=== PATIENT | male | born 1990 | race Caucasian/White ===

== ENCOUNTER 2017-01-21 02:28 | Emergency (ER) | payer OTHER ==
--- NOTE | 2017-01-21 02:53 | ED NURSING NOTES ---
Clinical Report - Nurses [facility] [place] [address] 01/21/2017 2:30 Patient: NGUYEN BONILLA TRIAGE Triage time 02:32. Acuity: LEVEL 4. Chief Complaint: RIGHT LOWER EXTREMITY PAIN. LEFT LOWER EXTREMITY PAIN. Alert. No acute distress. SEPSIS SCREEN: Sepsis Screen: negative. Negative (no infection suspected/documented). --02:40 Brandon Jarvis R.N. 02:32 01/21/17. BP: 147/93 (regular adult cuff) taken on the left arm, via an automated monitor, while lying. HR: 81 (normal rate). RR: 16 (regular, unlabored and normal). O2 saturation: 100% on room air. Temp: 97.9 F (oral). Pain level now: 510. --02:40 Brandon Jarvis R.N. Weight: 90.7 kg stated. Height/Length: 72 inches Per Patient. BMI: 27.1. --02:37 Brandon Jarvis R.N. Medications None. --02:39 Brandon Jarvis R.N. Medication/allergy information source: the patient. --02:40 Brandon Jarvis R.N. Allergies None. --02:39 Brandon Jarvis R.N. History Arrived by private vehicle. Historian: patient. ( Nguyen was seen for pain in his feet about 2 days ago and prescribed an antibiotic. Nguyen says the antibiotic will do nothing because he has built up an immunity to the antibiotics. Per EMS, Nguyen was [facility] after shooting up heroin and eating meth.). Treatment PROMOTIONS REPRESENTATIVE: None. SOCIAL HX: Current every day light tobacco smoker (cigarette)- less than 1/2 a pack per day. History of heavy IV drug use: heroin, methamphetamines. No alcohol use. Residence: Homeless. He has not traveled outside the [place] The patient was exposed to MRSA. SELF HARM ASSESSMENT: A self harm assessment was performed. The patient answered "no" to the question "Do you have thoughts of harming or killing yourself?" and "Have you recently had thoughts about harming or killing others?". Bedside precautions. FALL RISK ASSESSMENT: Fall risk assessment completed. No fall risk identified. NUTRITIONAL RISK ASSESSMENT: The nutritional risk assessment revealed no deficiencies. FUNCTIONAL ASSESSMENT: Functional assessment: no impairments noted. LEARNING NEEDS ASSESSMENT: The learning needs assessment revealed no barriers. ABUSE ASSESSMENT: Abuse assessment: The patient was asked "Do you feel safe in your home?" and "Has anyone hurt you or threatened to hurt you?". SKIN INTEGRITY ASSESSMENT: Skin integrity risk assessment completed. No skin integrity risk identified. --02:40 Brandon Jarvis R.N. PROBLEMS: Knee Injury. Abscess. Cellulitis. Lifestyle / Substance Problems. Substance Abuse. Hypertension. Bursitis. --02:39 Brandon Jarvis R.N. ADDITIONAL SURGERIES: ARM SURGERY. LEG SURGERY. --02:39 Brandon Jarvis R.N. Assessment GENERAL / NEURO / PSYCH: Alert. Oriented X 4. Appears in no acute distress. Yakelin Coma Scale: 15- eyes open spontaneously (4); best verbal response- oriented x 4 (5); best motor response- obeys commands (6). Patient appears calm and cooperative. ( Unkempt.). RESPIRATORY: Respirations not labored. SKIN: Skin is warm and dry. --02:40 Brandon Jarvis R.N. Interventions ID band on patient. --02:40 Brandon Jarvis R.N. PHYSICAL ASSESSMENT To room via stretcher. GENERAL / NEURO / PSYCH: Oriented X 4. Alert. Appears in no acute distress. RESPIRATORY: No respiratory distress. Respirations not labored. EXTREMITIES: Extremity pulses are within normal limits. Extremities exhibit normal ROM. Neuro-vascular status intact to the extremity. Normal gait. Right leg: erythema. Right foot: tenderness and swelling. Left leg: erythema. Left foot: tenderness and swelling. SKIN: Skin intact. Skin is warm and dry. --02:53 Brandon Jarvis R.N. NURSING PROGRESS NOTES 02:40 01/21/17. BP: 143/86 (regular adult cuff) taken on the left arm, via an automated monitor, while lying. HR: 78 (normal rate). RR: 16 (regular, unlabored and normal). O2 saturation: 100% on room air. --02:40 Brandon Jarvis R.N. The initial plan of care for this patient has been created This plan of care was discussed with the patient. Neuro-vascular extremity check distal to injury: pulses intact, no edema, capillary refill <2 seconds and sensation intact. Reassurance given to the patient. Two patient identifiers checked. Call light placed in reach. Side rails up x 2. Bed placed in lowest position. Brakes of bed on. --02:40 Brandon Jarvis R.N. 02:52 01/21/2017 Bactrim DS (Sulfamethoxazole-TMP DS) PO Tablets 2 tab given. Allergies verified and confirmed 5 rights. --02:52 Brandon Jarvis R.N. 02:52 01/21/2017 Ancef (CeFAZolin Sodium) IM 1 gm given. Given in the right ventral gluteus. Allergies verified and confirmed 5 rights. --02:52 Brandon Jarvis R.N. DISPOSITION / DISCHARGE Departure time: 03:05. Condition at departure: stable. The goals identified in the patient's plan of care were met. No learning barriers present. Discharge instructions provided and reviewed (Police). Reviewed medication(s) side effects, precautions, dosing and course information. Prescription(s) given to the patient (Nguyen verbalizes importance of finishing all prescribed antibiotics.). Patient verbalized understanding. Written instructions provided in Swedish. Verbalized understanding (Police). The patient was discharged by the physician. He was discharged to police department facility and accompanied by a police escort. He left the Emergency Department ambulatory and via police department vehicle. YAKELIN COMA SCORE: [place] Coma Scale: 15- eyes open spontaneously (4); best verbal response- oriented x 4 (5); best motor response- obeys commands (6). --03:05 Brandon Jarvis R.N. 03:03 01/21/17. BP: deferred. HR: deferred. RR: deferred. O2 saturation: deferred. Temp: deferred. Pain level now deferred. --03:05 Brandon Jarvis R.N. Locked/Released at 01/21/2017 3:05 by Brandon Jarvis R.N.
--- NOTE | 2017-01-21 02:53 | ED CLINICAL REPORT ---
Clinical Report - Physicians/Mid Levels [facility] [address] [place] [address] 01/21/2017 2:30 Patient: NGUYEN BONILLA Time Seen: 02:34. Arrived- By ambulance. Historian- patient and EMS personnel. HISTORY OF PRESENT ILLNESS Chief Complaint: FOOT PAIN. At its maximum, severity described as moderate. When seen in the E.D., severity described as moderate. Modifying factors- worsened by movement and walking. Relieved by rest. This started several weeks ago and is still present. It was gradual in onset and has been waxing/waning. No headache, fatigue, muscle aches or weakness. (Nguyen was seen for pain in his feet about 2 days ago and prescribed an antibiotic. Nguyen says the antibiotic will do nothing because he has built up an immunity to the antibiotics. Per EMS, Nguyen was found in the [facility] after shooting up heroin and eating meth). Similar symptoms previously: Recent medical care: The patient was seen recently at another facility in the emergency department. Seen for similar symptoms. Diagnosis: ("Sore feet", "Corns and callosities", "Pain" in both feet). ( Seen at [facility] on 01/13/2017 Also seen at area Walk-in clinic 2 days ago). REVIEW OF SYSTEMS No fever, sore throat, sinus drainage, nasal congestion or cough. No difficulty breathing, chest pain, abdominal pain, nausea or vomiting. No diarrhea, black stools, bloody stools, chills or difficulty with urination. No back pain, calf pain, headache or blackouts. The patient has had skin rash. He has had difficulty with ambulation. He has had suicidal thoughts (not homicidal). All systems otherwise negative, except as recorded above. PAST HISTORY Problems: Substance Abuse. Hypertension. Bursitis Abscesses Cellulitis SURGERY: Abscess I&D. Medications: None. Allergies: None. SOCIAL HISTORY Smoker- current status unknown. History of IV drug use. No alcohol use. He is homeless. ADDITIONAL NOTES The nursing notes have been reviewed. PHYSICAL EXAM Vital Signs: 01/21/2017 02:32 BP: 147/93. HR: 81. RR: 16. O2 saturation: 100%. Temp: 97.9 F. Pain level now: 5/10. Appearance: Alert. Anxious. Patient in mild distress. Eyes: Pupils equal, round and reactive to light. Eyes normal inspection. No scleral icterus or pale conjunctivae. ENT: Pharynx normal. No pharyngeal erythema or tonsillar exudate. The mucous membranes are not dry. Neck: Normal inspection. Neck supple. No meningeal signs, JVD or lymphadenopathy. CVS: Normal heart rate and rhythm. Heart sounds normal. Pulses normal. No cardiac murmur. Respiratory: No respiratory distress. Breath sounds normal. Abdomen: No visible injury. Soft and nontender. No mass. Back: Normal inspection. Skin: No cyanosis. Skin warm and dry. No diaphoresis. No jaundice. No abscess. Medium area of cellulitis with tenderness, erythema and warmth to the face, right thigh, right leg, left thigh and left leg. No lymphangitis. No petechiae. No urticaria. (IDU scars on extremities). Extremities: No calf tenderness. (signs of cellulitis on both lower extremities; no evident abscess). Neuro: Oriented X 3. No motor deficit. No sensory deficit. Reflexes normal. LABS, X-RAYS, AND EKG Pulse Oximetry: 01/21/2017 02:32 O2 saturation: 100%. (FIO2 - room air). Interpretation: normal. PROGRESS AND PROCEDURES Course of Care: Bactrim DS 2 tabs PO. Keflex 500 mg PO given. Pt denies SI or HI. No fever or other systemic symptoms now. He has picking behavior and some areas of superficial cellulitis on both lower extremities and face. Nothing evident to I&D now. Patient/family counseled. Old ED records reviewed. (CAITLYN: 7 visits to area ED's in past 12 months). Disposition: Discharged to halfway. Condition: stable and improved. CLINICAL IMPRESSION Cellulitis of the right and left cheek area, right thigh, right lower leg, left thigh and left lower leg. Chronic substance abuse- heroin, methamphetamines with perceptual disturbance. INSTRUCTIONS (medically cleared for booking into halfway; please provide Mr Bonilla with daily antibiotics as prescribed; watch for and return / follow up for fever or a change in his vital signs). Drink plenty of fluids. Warnings: Further evaluation is necessary in order to conduct further tests. It is very important to follow up with a physician. GENERAL WARNINGS: Return or contact your physician immediately if your condition worsens or changes unexpectedly, if not improving as expected, or if other problems arise. Prescription Medications: Septra DS 800 mg / 160 mg: take 2 tablets orally every 12 hours for 10 days. No refill. Substitution is permissible. Keflex 500 mg: take 1 capsule orally every 6 hours for 10 days. No refill. Substitution is permissible. OTC Medications: Acetaminophen (available over the counter): take according to label instructions. Motrin (available over the counter): take according to label instructions. Follow-up: Follow up with your doctor tomorrow. Follow-up with: [facility], , , [address] [place] [address], , [place], ; [facility], , , [facility]. [place] [address]; [facility], [facility], , [address] [place] [address] Follow up tomorrow. (Electronically signed by Leo Conway DO 01/21/2017 3:24)
--- NOTE | 2017-01-21 02:53 | ED ORDER SUMMARY ---
..... Patient: NGUYEN BONILLA OrderSheet [facility] VisitID: [id number] [address] [place] [address] 26y, M Registration Date/Time: 01/21/2017 ORDER SHEET Weight: 90.7 kg (stated) Allergies: None GENERAL ORDERS: MEDICATION ORDERS: Bactrim DS PO (Tablet 800-160 mg) 2 tabs (NOW) (02:43 01/21/2017 Fawad MOSES) (Ack 2:43 JDeElena R.N.) (2:52 JDeElena R.N.) Ancef IM 1 gm (NOW) (02:43 01/21/2017 Fawad MOSES) (Ack 2:43 JDeElena R.N.) (2:52 JDeElena R.N.) IV FLUIDS: ORDER SHEET NOTES: [Electronically signed by Brandon Jarvis R.N. (03:05 01/21/2017)] [Electronically signed by Leo Conway DO (03:24 01/21/2017)] [Electronically locked/signed by Brandon Jarvis R.N. (03:05 01/21/2017)]
--- NOTE | 2017-01-21 02:53 | ED CLINICAL REPORT ---
Clinical Report - Physicians/Mid Levels [facility] [address] [place] [address] 01/21/2017 2:30 Patient: NGUYEN BONILLA Time Seen: 02:34. Arrived- By ambulance. Historian- patient and EMS personnel. HISTORY OF PRESENT ILLNESS Chief Complaint: FOOT PAIN. At its maximum, severity described as moderate. When seen in the E.D., severity described as moderate. Modifying factors- worsened by movement and walking. Relieved by rest. This started several weeks ago and is still present. It was gradual in onset and has been waxing/waning. No headache, fatigue, muscle aches or weakness. (Nguyen was seen for pain in his feet about 2 days ago and prescribed an antibiotic. Nguyen says the antibiotic will do nothing because he has built up an immunity to the antibiotics. Per EMS, Nguyen was found in the [facility] after shooting up heroin and eating meth). Similar symptoms previously: Recent medical care: The patient was seen recently at another facility in the emergency department. Seen for similar symptoms. Diagnosis: ("Sore feet", "Corns and callosities", "Pain" in both feet). ( Seen at [facility] on 01/13/2017 Also seen at area Walk-in clinic 2 days ago). REVIEW OF SYSTEMS No fever, sore throat, sinus drainage, nasal congestion or cough. No difficulty breathing, chest pain, abdominal pain, nausea or vomiting. No diarrhea, black stools, bloody stools, chills or difficulty with urination. No back pain, calf pain, headache or blackouts. The patient has had skin rash. He has had difficulty with ambulation. He has had suicidal thoughts (not homicidal). All systems otherwise negative, except as recorded above. PAST HISTORY Problems: Substance Abuse. Hypertension. Bursitis Abscesses Cellulitis SURGERY: Abscess I&D. Medications: None. Allergies: None. SOCIAL HISTORY Smoker- current status unknown. History of IV drug use. No alcohol use. He is homeless. ADDITIONAL NOTES The nursing notes have been reviewed. PHYSICAL EXAM Vital Signs: 01/21/2017 02:32 BP: 147/93. HR: 81. RR: 16. O2 saturation: 100%. Temp: 97.9 F. Pain level now: 5/10. Appearance: Alert. Anxious. Patient in mild distress. Eyes: Pupils equal, round and reactive to light. Eyes normal inspection. No scleral icterus or pale conjunctivae. ENT: Pharynx normal. No pharyngeal erythema or tonsillar exudate. The mucous membranes are not dry. Neck: Normal inspection. Neck supple. No meningeal signs, JVD or lymphadenopathy. CVS: Normal heart rate and rhythm. Heart sounds normal. Pulses normal. No cardiac murmur. Respiratory: No respiratory distress. Breath sounds normal. Abdomen: No visible injury. Soft and nontender. No mass. Back: Normal inspection. Skin: No cyanosis. Skin warm and dry. No diaphoresis. No jaundice. No abscess. Medium area of cellulitis with tenderness, erythema and warmth to the face, right thigh, right leg, left thigh and left leg. No lymphangitis. No petechiae. No urticaria. (IDU scars on extremities). Extremities: No calf tenderness. (signs of cellulitis on both lower extremities; no evident abscess). Neuro: Oriented X 3. No motor deficit. No sensory deficit. Reflexes normal. LABS, X-RAYS, AND EKG Pulse Oximetry: 01/21/2017 02:32 O2 saturation: 100%. (FIO2 - room air). Interpretation: normal. PROGRESS AND PROCEDURES Course of Care: Bactrim DS 2 tabs PO. Keflex 500 mg PO given. Pt denies SI or HI. No fever or other systemic symptoms now. He has picking behavior and some areas of superficial cellulitis on both lower extremities and face. Nothing evident to I&D now. Patient/family counseled. Old ED records reviewed. (CAITLYN: 7 visits to area ED's in past 12 months). Disposition: [facility] to [facility]. Condition: stable and improved. CLINICAL IMPRESSION Cellulitis of the right and left cheek area, right thigh, right lower leg, left thigh and left lower leg. Chronic substance abuse- heroin, methamphetamines with perceptual disturbance. INSTRUCTIONS (medically cleared for booking into [facility]; please provide Mr Bonilla with daily antibiotics as prescribed; watch for and return / follow up for fever or a change in his vital signs). Drink plenty of fluids. Warnings: Further evaluation is necessary in order to conduct further tests. It is very important to follow up with a physician. GENERAL WARNINGS: Return or contact your physician immediately if your condition worsens or changes unexpectedly, if not improving as expected, or if other problems arise. Prescription Medications: Septra DS 800 mg / 160 mg: take 2 tablets orally every 12 hours for 10 days. No refill. Substitution is permissible. Keflex 500 mg: take 1 capsule orally every 6 hours for 10 days. No refill. Substitution is permissible. OTC Medications: Acetaminophen (available over the counter): take according to label instructions. Motrin (available over the counter): take according to label instructions. Follow-up: Follow up with your doctor tomorrow. Follow-up with: [facility], , , [address] [place] [address], , [place], ; [facility], , , [facility]. [place] [address]; [facility], [facility], , [address] [place] [address] Follow up tomorrow. (Electronically signed by Leo Conway DO 01/21/2017 3:24)
--- NOTE | 2017-01-21 02:53 | ED ORDER SUMMARY ---
..... Patient: NGUYEN BONILLA OrderSheet [facility] VisitID: [id number] [address] [place] [address] 26y, M Registration Date/Time: 01/21/2017 ORDER SHEET Weight: 90.7 kg (stated) Allergies: None GENERAL ORDERS: MEDICATION ORDERS: Bactrim DS PO (Tablet 800-160 mg) 2 tabs (NOW) (02:43 01/21/2017 Fawad MOSES) (Ack 2:43 JDeElena R.N.) (2:52 JDeElena R.N.) Ancef IM 1 gm (NOW) (02:43 01/21/2017 Fawad MOSES) (Ack 2:43 JDeElena R.N.) (2:52 JDeElena R.N.) IV FLUIDS: ORDER SHEET NOTES: [Electronically signed by Brandon Jarvis R.N. (03:05 01/21/2017)] [Electronically signed by Leo Conway DO (03:24 01/21/2017)] [Electronically locked/signed by Brandon Jarvis R.N. (03:05 01/21/2017)]
--- NOTE | 2017-01-21 03:24 | ED MED RECONCILIATION SUMMARY ---
Patient: NGUYEN BONILLA Medication Reconciliation Report [facility] VisitID: [id number] [address] [place] [address] 26y, M Registration Date/Time: 01/21/2017 Weight: 90.7 kg Height/Length: 72 in. BMI: 27.1 ALLERGIES: None The patient's Home Medications are listed below: NONE. The source(s) of the original Home Medication information: patient The following Medications were given to the patient in the Emergency Department: Bactrim DS [PO] PO 2 tab, administered: 01/21/2017 2:52:00 AM Ancef [IM] IM 1 gm, administered: 01/21/2017 2:52:00 AM The following Medications were prescribed to the patient: Acetaminophen (available over the counter): take according to label instructions. -- Leo Conway DO Motrin (available over the counter): take according to label instructions. -- Leo Conway DO Septra DS 800 mg / 160 mg: take 2 tablets orally every 12 hours for 10 days. No refill. Substitution is permissible. -- Leo Conway DO Keflex 500 mg: take 1 capsule orally every 6 hours for 10 days. No refill. Substitution is permissible. -- Leo Conway DO
--- NOTE | 2017-01-21 03:24 | ED MAR SUMMARY ---
..... Medication Administration Record [facility] [address] [place] [address] Patient: NGUYEN BONILLA Visit ID: [id number] 26y, M Weight: 90.7 kg Height/Length: 72 in BMI: 27.1 ALLERGIES: None Given 02:01/21/2017 Brandon Jarvis, RMaria InesNMaria Ines Medication Administered: BACTRIM DS [PO] (SULFAMETHOXAZOLE-TMP DS), Dose: 2 tab Tablets PO. Medication Ordered: Bactrim DS PO (Tablet 800-160 mg) 2 tabs (NOW). Given 02:01/21/2017 Brandon Jarvis, R.N. Medication Administered: ANCEF [IM] (CEFAZOLIN SODIUM), Dose: 1 gm IM. Medication Ordered: Ancef IM 1 gm (NOW).
--- NOTE | 2017-01-21 03:24 | ED MED RECONCILIATION SUMMARY ---
Patient: NGUYEN BONILLA Medication Reconciliation Report [facility] VisitID: [id number] [address] [place] [address] 26y, M Registration Date/Time: 01/21/2017 Weight: 90.7 kg Height/Length: 72 in. BMI: 27.1 ALLERGIES: None The patient's Home Medications are listed below: NONE. The source(s) of the original Home Medication information: patient The following Medications were given to the patient in the Emergency Department: Bactrim DS [PO] PO 2 tab, administered: 01/21/2017 2:52:00 AM Ancef [IM] IM 1 gm, administered: 01/21/2017 2:52:00 AM The following Medications were prescribed to the patient: Acetaminophen (available over the counter): take according to label instructions. -- Leo Conway DO Motrin (available over the counter): take according to label instructions. -- Leo Conway DO Septra DS 800 mg / 160 mg: take 2 tablets orally every 12 hours for 10 days. No refill. Substitution is permissible. -- Leo Conway DO Keflex 500 mg: take 1 capsule orally every 6 hours for 10 days. No refill. Substitution is permissible. -- Leo Conway DO
--- NOTE | 2017-01-21 03:24 | ED DISCHARGE INSTRUCTIONS ---
Patient: NGUYEN BONILLA General Instructions [facility] VisitID: [id number] [address], [place] [address] 26y, M Registration Date/Time: 01/21/2017 Cellulitis of the right and left cheek area, right thigh, right lower leg, left thigh and left lower leg. Chronic substance abuse- heroin, methamphetamines with perceptual disturbance. INSTRUCTIONS (medically cleared for booking into [facility]; please provide Mr Bonilla with daily antibiotics as prescribed; watch for and return / follow up for fever or a change in his vital signs). Drink plenty of fluids. Warnings: Further evaluation is necessary in order to conduct further tests. It is very important to follow up with a physician. GENERAL WARNINGS: Return or contact your physician immediately if your condition worsens or changes unexpectedly, if not improving as expected, or if other problems arise. Prescription Medications: Septra DS 800 mg / 160 mg: take 2 tablets orally every 12 hours for 10 days. No refill. Substitution is permissible. Keflex 500 mg: take 1 capsule orally every 6 hours for 10 days. No refill. Substitution is permissible. OTC Medications: Acetaminophen (available over the counter): take according to label instructions. Motrin (available over the counter): take according to label instructions. Follow-up: Follow up with your doctor tomorrow. Follow-up with: [facility], , , [address] [place] [address], , [place], ; [facility], , , [address], , [place] [address]; [facility], [facility], , [address] [place] [address] Follow up tomorrow. ADDITIONAL INFORMATION Cellulitis You have an infection of the skin known as cellulitis. This usually starts with a scrape, cut, insect bite, blister or other opening in the skin which becomes infected. This is a serious condition. It must be watched closely to be sure the infection is not spreading. With antibiotic treatment, the size of the red area will gradually shrink in size until the skin returns to normal. This will take 7-10 days. The red area should never increase in size once the antibiotic medicine has been started. Occasionally, an infection will be resistant to one antibiotic and another one will have to be used. Home Care: 1) Limit the use of the affected part, since excess movement can cause the infection to spread. 2) If the infection is on your leg, walk as little as possible during the first few days of the treatment. Keep your leg elevated while sitting. This will reduce swelling. 3) Take all of the antibiotic medicine exactly as directed until it is gone. Be careful not to miss any doses, especially during the first seven days. Follow Up with your doctor or this facility as directed. Check the infected area daily for the warning signs listed below. Get Prompt Medical Attention if any of the following occur: -- Spreading area of redness -- Increasing swelling or pain -- Appearance of pus or drainage -- Fever over 100.4 F (38.0 C) oral, or over 101.4 F (38.6 C) rectal, after two days on antibiotics Facial Cellulitis You have an infection of the skin known as cellulitis. This usually starts with a scrape, cut or insect bite which becomes infected. It may also occur from an infected oil gland (pimple) or hair follicle. This can be a serious condition and must be watched closely to be sure the infection is not spreading. With antibiotic treatment, the size of the red area will gradually shrink in size until the skin returns to normal. This will take 7-10 days. The red area should never increase in size once the antibiotic medicine has been started. Occasionally, an infection will be resistant to one antibiotic and another one will have to be used. Home Care: 1) Take all of the antibiotic medicine exactly as prescribed until it is gone. Be careful not to miss any doses, especially during the first few days. 2) A cool compress (face cloth soaked in cool water) applied to the face may help with the swelling and pain. 3) You may use acetaminophen (Tylenol) or ibuprofen (Motrin, Advil) to control pain, unless another medicine was prescribed. [ NOTE : If you have chronic liver or kidney disease or ever had a stomach ulcer or GI bleeding, talk with your doctor before using these medicines.] (Aspirin should never be used in anyone under 18 years of age who is ill with a fever. It may cause severe liver damage.) Follow Up with your doctor or this facility as directed. Check the infected area daily for the warning signs listed below. Get Prompt Medical Attention if any of the following occur: -- Increasing area of redness, swelling or pain -- Pus or fluid drainage from the skin or the eye -- Fever of 100.5 F (38 C) oral or 101.5 F (38.6 C) rectal for more than two days on antibiotics -- Eyelid swells shut -- Increasing headache or neck pain -- Unusual drowsiness or confusion -- Convulsion (seizure) Opiate Abuse Use and abuse of heroin or prescription pain medicines (Vicodin, codeine) may lead to physical ADDICTION or psychological DEPENDENCE. Once this occurs, you are at greater risk for any of the following: - Craving for the drug and unable to stop using the drug even though you think you want to stop (psychological dependence) - Drug withdrawal symptoms if you stop taking the drug (physical addiction) - Loss of your job or your family - Arrest, conviction and [facility] sentence for possession of an illegal substance or for driving under the influence of such a substance - Accidental injuries to yourself or others while you are under the influence of the drug (in a car or at home). - HIV infection (much greater risk if you use IV drugs) - Other sexually transmitted diseases (Herpes, chlamydia, gonorrhea and others) - Severe and fatal infection of the heart valves (if you use IV drugs) - Stroke, heart attack, hepatitis B or C, kidney failure - from overdose Home Care: 1) Admit you have a drug problem. Ask for help from your family and close friends. 2) Seek professional help. This could be individual psychotherapy, counseling, or a drug treatment program (outpatient or residential). 3) Join a self-help group for drug abuse. 4) Avoid friends who abuse drugs themselves or tempt you to continue your habit 5) Eat a balanced diet and begin a regular exercise program. Follow Up with your doctor or as advised by our staff. Contact one of the resources below for help. National [employer] on Alcoholism and Drug Dependence, www.ncadd.org 297-260-BHRG Narcotics Anonymous (check your phone book for a local listing or call 043-800-6710) www.na.org National Alcohol and Substance Abuse Information Center (for referral to treatment programs) Www.PlacewordcareCleankeys.RallyOn 998-090-3345 Get Prompt Medical Attention if any of the following occur: -- Symptoms of withdrawal (agitation, anxiety, trembling, sweats, diarrhea, unable to sleep) -- Chest pain -- Unexplained fever over 100.4 F (38.0 C) -- Excessive drowsiness or inability to be awakened -- Slow breathing under 8 breaths per minute -- Shortness of breath or cough with colored sputum -- Redness, swelling or tenderness at an injection site Sulfamethoxazole, Trimethoprim Oral tablet What is this medicine? SULFAMETHOXAZOLE; TRIMETHOPRIM or SMX-TMP (suhl fuh meth OK yumiko zohl; trye METH oh prim) is a combination of a sulfonamide antibiotic and a second antibiotic, trimethoprim. It is used to treat or prevent certain kinds of bacterial infections. It will not work for colds, flu, or other viral infections. How should I use this medicine? Take this medicine by mouth with a full glass of water. Follow the directions on the prescription label. Take your medicine at regular intervals. Do not take it more often than directed. Do not skip doses or stop your medicine early. Talk to your director bioinformatics regarding the use of this medicine in children. Special care may be needed. This medicine has been used in children as young as 2 months of age. What side effects may I notice from receiving this medicine? Side effects that you should report to your doctor or health career development counselor as soon as possible: allergic reactions like skin rash or hives, swelling of the face, lips, or tongue breathing problems fever or chills, sore throat irregular heartbeat, chest pain joint or muscle pain pain or difficulty passing urine red pinpoint spots on skin redness, blistering, peeling or loosening of the skin, including inside the mouth unusual bleeding or bruising unusually weak or tired yellowing of the eyes or skin Side effects that usually do not require medical attention (report to your doctor or health career development counselor if they continue or are bothersome): diarrhea dizziness headache loss of appetite nausea, vomiting nervousness What may interact with this medicine? Do not take this medicine with any of the following medications: aminobenzoate potassium dofetilide metronidazole This medicine may also interact with the following medications: TAMEKA inhibitors like benazepril, enalapril, lisinopril, and ramipril cyclosporine digoxin diuretics indomethacin medicines for diabetes methenamine methotrexate phenytoin potassium supplements pyrimethamine sulfinpyrazone tricyclic antidepressants warfarin What if I miss a dose? If you miss a dose, take it as soon as you can. If it is almost time for your next dose, take only that dose. Do not take double or extra doses. Where should I keep my medicine? Keep out of the reach of children. Store at room temperature between 20 to 25 degrees C (68 to 77 degrees F). Protect from light. Throw away any unused medicine after the expiration date. What should I tell my health care provider before I take this medicine? They need to know if you have any of these conditions: anemia asthma being treated with anticonvulsants if you frequently drink alcohol containing drinks kidney disease liver disease low level of folic acid or [id number] dehydrogenase poor nutrition or malabsorption porphyria severe allergies thyroid disorder an unusual or allergic reaction to sulfamethoxazole, trimethoprim, sulfa drugs, other medicines, foods, dyes, or preservatives or trying to get breast-feeding What should I watch for while using this medicine? Tell your doctor or health career development counselor if your symptoms do not improve. Drink several glasses of water a day to reduce the risk of kidney problems. Do not treat diarrhea with over the counter products. Contact your doctor if you have diarrhea that lasts more than 2 days or if it is severe and watery. This medicine can make you more sensitive to the sun. Keep out of the sun. If you cannot avoid being in the sun, wear protective clothing and use a sunscreen. Do not use sun lamps or tanning beds/booths. Cephalexin Monohydrate Oral tablet What is this medicine? CEPHALEXIN (sef a LINDSEY in) is a cephalosporin antibiotic. It is used to treat certain kinds of bacterial infections It will not work for colds, flu, or other viral infections. How should I use this medicine? Take this medicine by mouth with a full glass of water. Follow the directions on the prescription label. This medicine can be taken with or without food. Take your medicine at regular intervals. Do not take your medicine more often than directed. Take all of your medicine as directed even if you think you are better. Do not skip doses or stop your medicine early. Talk to your director bioinformatics regarding the use of this medicine in children. While this drug may be prescribed for selected conditions, precautions do apply. What side effects may I notice from receiving this medicine? Side effects that you should report to your doctor or health career development counselor as soon as possible: allergic reactions like skin rash, itching or hives, swelling of the face, lips, or tongue breathing problems pain or trouble passing urine redness, blistering, peeling or loosening of the skin, including inside the mouth severe or watery diarrhea unusually weak or tired yellowing of the eyes, skin Side effects that usually do not require medical attention (report to your doctor or health career development counselor if they continue or are bothersome): gas or heartburn genital or anal irritation headache joint or muscle pain nausea, vomiting What may interact with this medicine? probenecid some other antibiotics What if I miss a dose? If you miss a dose, take it as soon as you can. If it is almost time for your next dose, take only that dose. Do not take double or extra doses. There should be at least 4 to 6 hours between doses. Where should I keep my medicine? Keep out of the reach of children. Store at room temperature between 59 and 86 degrees F (15 and 30 degrees C). Throw away any unused medicine after the expiration date. What should I tell my health care provider before I take this medicine? They need to know if you have any of these conditions: kidney disease stomach or intestine problems, especially colitis an unusual or allergic reaction to cephalexin, other cephalosporins, penicillins, other antibiotics, medicines, foods, dyes or preservatives or trying to get breast-feeding What should I watch for while using this medicine? Tell your doctor or health career development counselor if your symptoms do not begin to improve in a few days. Do not treat diarrhea with over the counter products. Contact your doctor if you have diarrhea that lasts more than 2 days or if it is severe and watery. If you have diabetes, you may get a false-positive result for sugar in your urine. Check with your doctor or health career development counselor. Acetaminophen Oral tablet What is this medicine? ACETAMINOPHEN (a set a BRENNEN zaki fen) is a pain reliever. It is used to treat mild pain and fever. How should I use this medicine? Take this medicine by mouth with a glass of water. Follow the directions on the package or prescription label. Take your medicine at regular intervals. Do not take your medicine more often than directed. Talk to your director bioinformatics regarding the use of this medicine in children. While this drug may be prescribed for children as young as 6 years of age for selected conditions, precautions do apply. What side effects may I notice from receiving this medicine? Side effects that you should report to your doctor or health career development counselor as soon as possible: allergic reactions like skin rash, itching or hives, swelling of the face, lips, or tongue breathing problems fever or sore throat redness, blistering, peeling or loosening of the skin, including inside the mouth trouble passing urine or change in the amount of urine unusual bleeding or bruising unusually weak or tired yellowing of the eyes or skin Side effects that usually do not require medical attention (report to your doctor or health career development counselor if they continue or are bothersome): headache nausea, stomach upset What may interact with this medicine? alcohol imatinib isoniazid other medicines with acetaminophen What if I miss a dose? If you miss a dose, take it as soon as you can. If it is almost time for your next dose, take only that dose. Do not take double or extra doses. Where should I keep my medicine? Keep out of reach of children. Store at room temperature between 20 and 25 degrees C (68 and 77 degrees F). Protect from moisture and heat. Throw away any unused medicine after the expiration date. What should I tell my health care provider before I take this medicine? They need to know if you have any of these conditions: if you frequently drink alcohol containing drinks liver disease an unusual or allergic reaction to acetaminophen, other medicines, foods, dyes or preservatives or trying to get breast-feeding What should I watch for while using this medicine? Tell your doctor or health career development counselor if the pain lasts more than 10 days (5 days for children), if it gets worse, or if there is a new or different kind of pain. Also, check with your doctor if a fever lasts for more than 3 days. Do not take other medicines that contain acetaminophen with this medicine. Always read labels carefully. If you have questions, ask your doctor or pharmacist. If you take too much acetaminophen get medical help right away. Too much acetaminophen can be very dangerous and cause liver damage. Even if you do not have symptoms, it is important to get help right away. Ibuprofen Oral tablet What is this medicine? IBUPROFEN (eye BYOO proe fen) is a non-steroidal anti-inflammatory drug (NSAID). It is used for dental pain, fever, headaches or migraines, osteoarthritis, rheumatoid arthritis, or painful monthly periods. It can also relieve minor aches and pains caused by a cold, flu, or sore throat. How should I use this medicine? Take this medicine by mouth with a glass of water. Follow the directions on the prescription label. Take this medicine with food if your stomach gets upset. Try to not lie down for at least 10 minutes after you take the medicine. Take your medicine at regular intervals. Do not take your medicine more often than directed. A special MedGuide will be given to you by the pharmacist with each prescription and refill. Be sure to read this information carefully each time. Talk to your director bioinformatics regarding the use of this medicine in children. Special care may be needed. What side effects may I notice from receiving this medicine? Side effects that you should report to your doctor or health career development counselor as soon as possible: allergic reactions like skin rash, itching or hives, swelling of the face, lips, or tongue black or bloody stools, blood in the urine or in vomit breathing problems changes in vision chest pain general ill feeling or flu-like symptoms nausea or vomiting redness, blistering, peeling or loosening of the skin, including inside the mouth slurred speech or weakness on one side of the body stomach pain unexplained weight gain or swelling unusually weak or tired yellowing of eyes or skin Side effects that usually do not require medical attention (report to your doctor or health career development counselor if they continue or are bothersome): constipation or diarrhea dizziness gas or heartburn stomach upset What may interact with this medicine? Do not take this medicine with any of the following medications: cidofovir ketorolac methotrexate pemetrexed This medicine may also interact with the following medications: alcohol aspirin diuretics lithium other drugs for inflammation like prednisone warfarin What if I miss a dose? If you miss a dose, take it as soon as you can. If it is almost time for your next dose, take only that dose. Do not take double or extra doses. Where should I keep my medicine? Keep out of the reach of children. Store at room temperature between 15 and 30 degrees C (59 and 86 degrees F). Keep container tightly closed. Throw away any unused medicine after the expiration date. What should I tell my health care provider before I take this medicine? They need to know if you have any of these conditions: asthma cigarette smoker drink more than 3 alcohol containing drinks a day heart disease or circulation problems such as heart failure or leg edema (fluid retention) high blood pressure kidney disease liver disease stomach bleeding or ulcers an unusual or allergic reaction to ibuprofen, aspirin, other NSAIDS, other medicines, foods, dyes, or preservatives or trying to get breast-feeding What should I watch for while using this medicine? Tell your doctor or healthcare professional if your symptoms do not start to get better or if they get worse. This medicine does not prevent heart attack or stroke. In fact, this medicine may increase the chance of a heart attack or stroke. The chance may increase with longer use of this medicine and in people who have heart disease. If you take aspirin to prevent heart attack or stroke, talk with your doctor or health career development counselor. Do not take other medicines that contain aspirin, ibuprofen, or naproxen with this medicine. Side effects such as stomach upset, nausea, or ulcers may be more likely to occur. Many medicines available without a prescription should not be taken with this medicine. This medicine can cause ulcers and bleeding in the stomach and intestines at any time during treatment. Ulcers and bleeding can happen without warning symptoms and can cause . To reduce your risk, do not smoke cigarettes or drink alcohol while you are taking this medicine. You may get drowsy or dizzy. Do not drive, use machinery, or do anything that needs mental alertness until you know how this medicine affects you. Do not stand or sit up quickly, especially if you are an older patient. This reduces the risk of dizzy or fainting spells. This medicine can cause you to bleed more easily. Try to avoid damage to your teeth and gums when you brush or floss your teeth. You have been given the following additional information: Cellulitis Cellulitis, Facial Opiate Abuse Sulfamethoxazole, Trimethoprim Oral tablet Cephalexin Monohydrate Oral tablet Acetaminophen Oral tablet Ibuprofen Oral tablet (medically cleared for booking into [facility]; please provide Mr Bonilla with daily antibiotics as prescribed; watch for and return / follow up for fever or a change in his vital signs). (Electronically signed by Leo Conway DO 01/21/2017 3:24)
--- NOTE | 2017-01-21 03:24 | ED MAR SUMMARY ---
..... Medication Administration Record [facility] [address] [place] [address] Patient: NGUYEN BONILLA Visit ID: [id number] 26y, M Weight: 90.7 kg Height/Length: 72 in BMI: 27.1 ALLERGIES: None Given 02:01/21/2017 Brandon Jarvis, RMaria InesNMaria Ines Medication Administered: BACTRIM DS [PO] (SULFAMETHOXAZOLE-TMP DS), Dose: 2 tab Tablets PO. Medication Ordered: Bactrim DS PO (Tablet 800-160 mg) 2 tabs (NOW). Given 02:01/21/2017 Brandon Jarvis, R.N. Medication Administered: ANCEF [IM] (CEFAZOLIN SODIUM), Dose: 1 gm IM. Medication Ordered: Ancef IM 1 gm (NOW).
--- NOTE | 2017-01-21 03:24 | ED DISCHARGE INSTRUCTIONS ---
Patient: NGUYEN BONILLA General Instructions [facility] VisitID: [id number] [address], [place] [address] 26y, M Registration Date/Time: 01/21/2017 Cellulitis of the right and left cheek area, right thigh, right lower leg, left thigh and left lower leg. Chronic substance abuse- heroin, methamphetamines with perceptual disturbance. INSTRUCTIONS (medically cleared for booking [facility] [place] [facility]; please provide Mr Bonilla with daily antibiotics as prescribed; watch for and return / follow up for fever or a change in his vital signs). Drink plenty of fluids. Warnings: Further evaluation is necessary in order to conduct further tests. It is very important to follow up with a physician. GENERAL WARNINGS: Return or contact your physician immediately if your condition worsens or changes unexpectedly, if not improving as expected, or if other problems arise. Prescription Medications: Septra DS 800 mg / 160 mg: take 2 tablets orally every 12 hours for 10 days. No refill. Substitution is permissible. Keflex 500 mg: take 1 capsule orally every 6 hours for 10 days. No refill. Substitution is permissible. OTC Medications: Acetaminophen (available over the counter): take according to label instructions. Motrin (available over the counter): take according to label instructions. Follow-up: Follow up with your doctor tomorrow. Follow-up with: [facility], , , [address] [place] [address], , [place], ; [facility], , , [address], , [place] [address]; [facility], [facility], , [address] [place] [address] Follow up tomorrow. ADDITIONAL INFORMATION Cellulitis You have an infection of the skin known as cellulitis. This usually starts with a scrape, cut, insect bite, blister or other opening in the skin which becomes infected. This is a serious condition. It must be watched closely to be sure the infection is not spreading. With antibiotic treatment, the size of the red area will gradually shrink in size until the skin returns to normal. This will take 7-10 days. The red area should never increase in size once the antibiotic medicine has been started. Occasionally, an infection will be resistant to one antibiotic and another one will have to be used. Home Care: 1) Limit the use of the affected part, since excess movement can cause the infection to spread. 2) If the infection is on your leg, walk as little as possible during the first few days of the treatment. Keep your leg elevated while sitting. This will reduce swelling. 3) Take all of the antibiotic medicine exactly as directed until it is gone. Be careful not to miss any doses, especially during the first seven days. Follow Up with your doctor or this facility as directed. Check the infected area daily for the warning signs listed below. Get Prompt Medical Attention if any of the following occur: -- Spreading area of redness -- Increasing swelling or pain -- Appearance of pus or drainage -- Fever over 100.4 F (38.0 C) oral, or over 101.4 F (38.6 C) rectal, after two days on antibiotics Facial Cellulitis You have an infection of the skin known as cellulitis. This usually starts with a scrape, cut or insect bite which becomes infected. It may also occur from an infected oil gland (pimple) or hair follicle. This can be a serious condition and must be watched closely to be sure the infection is not spreading. With antibiotic treatment, the size of the red area will gradually shrink in size until the skin returns to normal. This will take 7-10 days. The red area should never increase in size once the antibiotic medicine has been started. Occasionally, an infection will be resistant to one antibiotic and another one will have to be used. Home Care: 1) Take all of the antibiotic medicine exactly as prescribed until it is gone. Be careful not to miss any doses, especially during the first few days. 2) A cool compress (face cloth soaked in cool water) applied to the face may help with the swelling and pain. 3) You may use acetaminophen (Tylenol) or ibuprofen (Motrin, Advil) to control pain, unless another medicine was prescribed. [ NOTE : If you have chronic liver or kidney disease or ever had a stomach ulcer or GI bleeding, talk with your doctor before using these medicines.] (Aspirin should never be used in anyone under 18 years of age who is ill with a fever. It may cause severe liver damage.) Follow Up with your doctor or this facility as directed. Check the infected area daily for the warning signs listed below. Get Prompt Medical Attention if any of the following occur: -- Increasing area of redness, swelling or pain -- Pus or fluid drainage from the skin or the eye -- Fever of 100.5 F (38 C) oral or 101.5 F (38.6 C) rectal for more than two days on antibiotics -- Eyelid swells shut -- Increasing headache or neck pain -- Unusual drowsiness or confusion -- Convulsion (seizure) Opiate Abuse Use and abuse of heroin or prescription pain medicines (Vicodin, codeine) may lead to physical ADDICTION or psychological DEPENDENCE. Once this occurs, you are at greater risk for any of the following: - Craving for the drug and unable to stop using the drug even though you think you want to stop (psychological dependence) - Drug withdrawal symptoms if you stop taking the drug (physical addiction) - Loss of your job or your family - Arrest, conviction and [place] [facility] sentence for possession of an illegal substance or for driving under the influence of such a substance - Accidental injuries to yourself or others while you are under the influence of the drug (in a car or at home). - HIV infection (much greater risk if you use IV drugs) - Other sexually transmitted diseases (Herpes, chlamydia, gonorrhea and others) - Severe and fatal infection of the heart valves (if you use IV drugs) - Stroke, heart attack, hepatitis B or C, kidney failure - from overdose Home Care: 1) Admit you have a drug problem. Ask for help from your family and close friends. 2) Seek professional help. This could be individual psychotherapy, counseling, or a drug treatment program (outpatient or residential). 3) Join a self-help group for drug abuse. 4) Avoid friends who abuse drugs themselves or tempt you to continue your habit 5) Eat a balanced diet and begin a regular exercise program. Follow Up with your doctor or as advised by our staff. Contact one of the resources below for help. National [place] on Alcoholism and Drug Dependence, www.ncadd.org 601-817-BHGK Narcotics Anonymous (check your phone book for a local listing or call 056-952-1871) www.na.org National Alcohol and Substance Abuse Information Center (for referral to treatment programs) Www.[employer] 648-360-8312 Get Prompt Medical Attention if any of the following occur: -- Symptoms of withdrawal (agitation, anxiety, trembling, sweats, diarrhea, unable to sleep) -- Chest pain -- Unexplained fever over 100.4 F (38.0 C) -- Excessive drowsiness or inability to be awakened -- Slow breathing under 8 breaths per minute -- Shortness of breath or cough with colored sputum -- Redness, swelling or tenderness at an injection site Sulfamethoxazole, Trimethoprim Oral tablet What is this medicine? SULFAMETHOXAZOLE; TRIMETHOPRIM or SMX-TMP (suhl fuh meth OK yumiko zohl; trye METH oh prim) is a combination of a sulfonamide antibiotic and a second antibiotic, trimethoprim. It is used to treat or prevent certain kinds of bacterial infections. It will not work for colds, flu, or other viral infections. How should I use this medicine? Take this medicine by mouth with a full glass of water. Follow the directions on the prescription label. Take your medicine at regular intervals. Do not take it more often than directed. Do not skip doses or stop your medicine early. Talk to your supply cataloguer regarding the use of this medicine in children. Special care may be needed. This medicine has been used in children as young as 2 months of age. What side effects may I notice from receiving this medicine? Side effects that you should report to your doctor or health careers adviser as soon as possible: allergic reactions like skin rash or hives, swelling of the face, lips, or tongue breathing problems fever or chills, sore throat irregular heartbeat, chest pain joint or muscle pain pain or difficulty passing urine red pinpoint spots on skin redness, blistering, peeling or loosening of the skin, including inside the mouth unusual bleeding or bruising unusually weak or tired yellowing of the eyes or skin Side effects that usually do not require medical attention (report to your doctor or health careers adviser if they continue or are bothersome): diarrhea dizziness headache loss of appetite nausea, vomiting nervousness What may interact with this medicine? Do not take this medicine with any of the following medications: aminobenzoate potassium dofetilide metronidazole This medicine may also interact with the following medications: TAMEKA inhibitors like benazepril, enalapril, lisinopril, and ramipril cyclosporine digoxin diuretics indomethacin medicines for diabetes methenamine methotrexate phenytoin potassium supplements pyrimethamine sulfinpyrazone tricyclic antidepressants warfarin What if I miss a dose? If you miss a dose, take it as soon as you can. If it is almost time for your next dose, take only that dose. Do not take double or extra doses. Where should I keep my medicine? Keep out of the reach of children. Store at room temperature between 20 to 25 degrees C (68 to 77 degrees F). Protect from light. Throw away any unused medicine after the expiration date. What should I tell my health care provider before I take this medicine? They need to know if you have any of these conditions: anemia asthma being treated with anticonvulsants if you frequently drink alcohol containing drinks kidney disease liver disease low level of folic acid or miyutmi-[id number]-oznuthzzh dehydrogenase poor nutrition or malabsorption porphyria severe allergies thyroid disorder an unusual or allergic reaction to sulfamethoxazole, trimethoprim, sulfa drugs, other medicines, foods, dyes, or preservatives or trying to get breast-feeding What should I watch for while using this medicine? Tell your doctor or health careers adviser if your symptoms do not improve. Drink several glasses of water a day to reduce the risk of kidney problems. Do not treat diarrhea with over the counter products. Contact your doctor if you have diarrhea that lasts more than 2 days or if it is severe and watery. This medicine can make you more sensitive to the sun. Keep out of the sun. If you cannot avoid being in the sun, wear protective clothing and use a sunscreen. Do not use sun lamps or tanning beds/booths. Cephalexin Monohydrate Oral tablet What is this medicine? CEPHALEXIN (sef a LINDSEY in) is a cephalosporin antibiotic. It is used to treat certain kinds of bacterial infections It will not work for colds, flu, or other viral infections. How should I use this medicine? Take this medicine by mouth with a full glass of water. Follow the directions on the prescription label. This medicine can be taken with or without food. Take your medicine at regular intervals. Do not take your medicine more often than directed. Take all of your medicine as directed even if you think you are better. Do not skip doses or stop your medicine early. Talk to your supply cataloguer regarding the use of this medicine in children. While this drug may be prescribed for selected conditions, precautions do apply. What side effects may I notice from receiving this medicine? Side effects that you should report to your doctor or health careers adviser as soon as possible: allergic reactions like skin rash, itching or hives, swelling of the face, lips, or tongue breathing problems pain or trouble passing urine redness, blistering, peeling or loosening of the skin, including inside the mouth severe or watery diarrhea unusually weak or tired yellowing of the eyes, skin Side effects that usually do not require medical attention (report to your doctor or health careers adviser if they continue or are bothersome): gas or heartburn genital or anal irritation headache joint or muscle pain nausea, vomiting What may interact with this medicine? probenecid some other antibiotics What if I miss a dose? If you miss a dose, take it as soon as you can. If it is almost time for your next dose, take only that dose. Do not take double or extra doses. There should be at least 4 to 6 hours between doses. Where should I keep my medicine? Keep out of the reach of children. Store at room temperature between 59 and 86 degrees F (15 and 30 degrees C). Throw away any unused medicine after the expiration date. What should I tell my health care provider before I take this medicine? They need to know if you have any of these conditions: kidney disease stomach or intestine problems, especially colitis an unusual or allergic reaction to cephalexin, other cephalosporins, penicillins, other antibiotics, medicines, foods, dyes or preservatives or trying to get breast-feeding What should I watch for while using this medicine? Tell your doctor or health careers adviser if your symptoms do not begin to improve in a few days. Do not treat diarrhea with over the counter products. Contact your doctor if you have diarrhea that lasts more than 2 days or if it is severe and watery. If you have diabetes, you may get a false-positive result for sugar in your urine. Check with your doctor or health careers adviser. Acetaminophen Oral tablet What is this medicine? ACETAMINOPHEN (a set a BRENNEN zaki fen) is a pain reliever. It is used to treat mild pain and fever. How should I use this medicine? Take this medicine by mouth with a glass of water. Follow the directions on the package or prescription label. Take your medicine at regular intervals. Do not take your medicine more often than directed. Talk to your supply cataloguer regarding the use of this medicine in children. While this drug may be prescribed for children as young as 6 years of age for selected conditions, precautions do apply. What side effects may I notice from receiving this medicine? Side effects that you should report to your doctor or health careers adviser as soon as possible: allergic reactions like skin rash, itching or hives, swelling of the face, lips, or tongue breathing problems fever or sore throat redness, blistering, peeling or loosening of the skin, including inside the mouth trouble passing urine or change in the amount of urine unusual bleeding or bruising unusually weak or tired yellowing of the eyes or skin Side effects that usually do not require medical attention (report to your doctor or health careers adviser if they continue or are bothersome): headache nausea, stomach upset What may interact with this medicine? alcohol imatinib isoniazid other medicines with acetaminophen What if I miss a dose? If you miss a dose, take it as soon as you can. If it is almost time for your next dose, take only that dose. Do not take double or extra doses. Where should I keep my medicine? Keep out of reach of children. Store at room temperature between 20 and 25 degrees C (68 and 77 degrees F). Protect from moisture and heat. Throw away any unused medicine after the expiration date. What should I tell my health care provider before I take this medicine? They need to know if you have any of these conditions: if you frequently drink alcohol containing drinks liver disease an unusual or allergic reaction to acetaminophen, other medicines, foods, dyes or preservatives or trying to get breast-feeding What should I watch for while using this medicine? Tell your doctor or health careers adviser if the pain lasts more than 10 days (5 days for children), if it gets worse, or if there is a new or different kind of pain. Also, check with your doctor if a fever lasts for more than 3 days. Do not take other medicines that contain acetaminophen with this medicine. Always read labels carefully. If you have questions, ask your doctor or pharmacist. If you take too much acetaminophen get medical help right away. Too much acetaminophen can be very dangerous and cause liver damage. Even if you do not have symptoms, it is important to get help right away. Ibuprofen Oral tablet What is this medicine? IBUPROFEN (eye BYOO proe fen) is a non-steroidal anti-inflammatory drug (NSAID). It is used for dental pain, fever, headaches or migraines, osteoarthritis, rheumatoid arthritis, or painful monthly periods. It can also relieve minor aches and pains caused by a cold, flu, or sore throat. How should I use this medicine? Take this medicine by mouth with a glass of water. Follow the directions on the prescription label. Take this medicine with food if your stomach gets upset. Try to not lie down for at least 10 minutes after you take the medicine. Take your medicine at regular intervals. Do not take your medicine more often than directed. A special MedGuide will be given to you by the pharmacist with each prescription and refill. Be sure to read this information carefully each time. Talk to your supply cataloguer regarding the use of this medicine in children. Special care may be needed. What side effects may I notice from receiving this medicine? Side effects that you should report to your doctor or health careers adviser as soon as possible: allergic reactions like skin rash, itching or hives, swelling of the face, lips, or tongue black or bloody stools, blood in the urine or in vomit breathing problems changes in vision chest pain general ill feeling or flu-like symptoms nausea or vomiting redness, blistering, peeling or loosening of the skin, including inside the mouth slurred speech or weakness on one side of the body stomach pain unexplained weight gain or swelling unusually weak or tired yellowing of eyes or skin Side effects that usually do not require medical attention (report to your doctor or health careers adviser if they continue or are bothersome): constipation or diarrhea dizziness gas or heartburn stomach upset What may interact with this medicine? Do not take this medicine with any of the following medications: cidofovir ketorolac methotrexate pemetrexed This medicine may also interact with the following medications: alcohol aspirin diuretics lithium other drugs for inflammation like prednisone warfarin What if I miss a dose? If you miss a dose, take it as soon as you can. If it is almost time for your next dose, take only that dose. Do not take double or extra doses. Where should I keep my medicine? Keep out of the reach of children. Store at room temperature between 15 and 30 degrees C (59 and 86 degrees F). Keep container tightly closed. Throw away any unused medicine after the expiration date. What should I tell my health care provider before I take this medicine? They need to know if you have any of these conditions: asthma cigarette smoker drink more than 3 alcohol containing drinks a day heart disease or circulation problems such as heart failure or leg edema (fluid retention) high blood pressure kidney disease liver disease stomach bleeding or ulcers an unusual or allergic reaction to ibuprofen, aspirin, other NSAIDS, other medicines, foods, dyes, or preservatives or trying to get breast-feeding What should I watch for while using this medicine? Tell your doctor or healthcare professional if your symptoms do not start to get better or if they get worse. This medicine does not prevent heart attack or stroke. In fact, this medicine may increase the chance of a heart attack or stroke. The chance may increase with longer use of this medicine and in people who have heart disease. If you take aspirin to prevent heart attack or stroke, talk with your doctor or health careers adviser. Do not take other medicines that contain aspirin, ibuprofen, or naproxen with this medicine. Side effects such as stomach upset, nausea, or ulcers may be more likely to occur. Many medicines available without a prescription should not be taken with this medicine. This medicine can cause ulcers and bleeding in the stomach and intestines at any time during treatment. Ulcers and bleeding can happen without warning symptoms and can cause . To reduce your risk, do not smoke cigarettes or drink alcohol while you are taking this medicine. You may get drowsy or dizzy. Do not drive, use machinery, or do anything that needs mental alertness until you know how this medicine affects you. Do not stand or sit up quickly, especially if you are an older patient. This reduces the risk of dizzy or fainting spells. This medicine can cause you to bleed more easily. Try to avoid damage to your teeth and gums when you brush or floss your teeth. You have been given the following additional information: Cellulitis Cellulitis, Facial Opiate Abuse Sulfamethoxazole, Trimethoprim Oral tablet Cephalexin Monohydrate Oral tablet Acetaminophen Oral tablet Ibuprofen Oral tablet (medically cleared for booking into [place] [facility]; please provide Mr Bonilla with daily antibiotics as prescribed; watch for and return / follow up for fever or a change in his vital signs). (Electronically signed by Leo Conway DO 01/21/2017 3:24)
== END 2017-01-21 03:05 ==
LOC: ED SRH 02:28
DX: L03.211 Cellulitis of face (principal); L03.115 Cellulitis of right lower limb; F11.122 Opioid abuse with intoxication with perceptual disturbance; F15.122 Other stimulant abuse with intoxication with perceptual disturbance; Z02.89 Encounter for other administrative examinations

== ENCOUNTER 2017-03-10 08:59 | Emergency (ER) | payer OTHER ==
--- NOTE | 2017-03-10 17:42 | ED CLINICAL REPORT ---
Clinical Report - Physicians/Mid Levels [facility] [address] [place] [address] 03/10/2017 9:00 Patient: NGUYEN BONILLA Time Seen: 09:02; initial patient contact. Arrived- By ambulance. Historian- EMS personnel. History limited by intoxication. Physical Exam limited by intoxication. HISTORY OF PRESENT ILLNESS Chief Complaint: CHANGED MENTAL STATUS and CONFUSION. The patient has been disoriented. (re-evaluated after pt sobered up). This started today and is still present. (unknown). Patient was last known well (unknown). History of recent drug use Unknown. Usually is alert and oriented X3 and usually has normal mobility. Similar symptoms previously: Many times. Recent medical care: Not recently seen/assessed. REVIEW OF SYSTEMS Unobtainable due to patient's altered mental status. No fever, headache, head injury, dizziness or chest pain. No difficulty breathing, blurred vision, abdominal pain, nausea or diarrhea. No vomiting. All systems otherwise negative, except as recorded above. PAST HISTORY ( Unknown). SOCIAL HISTORY Smoker - current status unknown. Alcohol use. (Unknown). History of drug use Unknown. ADDITIONAL NOTES The nursing notes have been reviewed. PHYSICAL EXAM Vital Signs: 03/10/2017 08:44 BP: 172/98. HR: 130. RR: 24. O2 saturation: 100%. Have been reviewed. Hypertensive. Tachycardic. Tachypneic. Temperature normal. Oxygen saturation normal. Appearance: Alert. He appears intoxicated, is restless, appears unkempt and older than stated age and shows no apparent trauma. He has normal color and is well hydrated, well nourished and well developed. Head: Head atraumatic. ENT: Airway intact. Dry mucous membranes present. CVS: Normal heart rate and rhythm. Heart sounds normal. Respiratory: No respiratory distress. Breath sounds normal. Abdomen: Soft and nontender. No organomegaly. The bowel sounds are not abnormal. Skin: Skin warm and dry. Normal skin color. Extremities: No lower extremity edema. Neuro: Altered mental status. (Intoxicated). LABS, X-RAYS, AND EKG Laboratory Tests: UA-Culture if indicated: (KEITH: 03/10/2017 09:45) ( [facility] 03/10/2017 10:59) Final results Test Result Flag Units (Reference) URINE COLOR YELLOW URINE APPEARANCE CLEAR URINE GLUCOSE NEGATIVE (NEGATIVE) URINE BILIRUBIN NEGATIVE (NEGATIVE) URINE KETONE 3 (NEGATIVE) URINE SPECIFIC GRAVITY 1.020 (1.010-1.030) URINE PH 6.0 (5.0-8.0) URINE PROTEIN TRACE (NEGATIVE) URINE UROBILINOGEN 1.0 EU/dL (0.2-1.0) URINE NITRITE NEGATIVE (NEGATIVE) URINE BLOOD NEGATIVE (NEGATIVE) URINE LEUK ESTERASE NEGATIVE (NEGATIVE) URINE RBC 0-1 rbc/hpf (0-1) URINE WBC NONE SEEN wbc/hpf (0-1) URINE EPITHELIAL CELLS 0-1 EPI/hpf (0-5) URINE BACTERIA NONE SEEN (NONE SEEN) URINE COMMENT CULT NOT INDICATED URINE CULTURES ARE SET-UP BASED ON THE FOLLOWING CRITERIA:POSITIVE NITRITEPOSITIVE LEUKOCYTE ESTERASEGREATER THAN 10 WHITE BLOOD CELLSMODERATE (2+) OR GREATER BACTERIA CBC w Diff: (KEITH: 03/10/2017 09:45) ( [facility] 03/10/2017 10:26) Final results Test Result Flag Units (Reference) WHITE BLOOD COUNT 12.2 H K/uL (4.5-11.5) RED BLOOD COUNT 4.92 M/uL (4.50-5.90) HEMOGLOBIN 14.0 gm/dL (13.5-17.5) HEMATOCRIT 42.4 % (41.0-53.0) MEAN CELL VOLUME 86 fL (80-100) MEAN CORPUSCULAR HGB 29 pg (26-34) MEAN CORPUSCULAR HGB CONC 33 g/dL (31-37) RED CELL DISTRIBUTION WIDTH 14.5 % (11.6-14.8) PLATELET COUNT 345 K/uL (150-400) NEUTROPHIL % 79.7 H % (50-75) LYMPH % 12.7 L % (25-40) MONO % 7.2 % (3-14) EOSINOPHIL % 0.1 % (0-4) BASOPHIL % 0.3 % (0-2) [id number]: (KEITH: 03/10/2017 09:45) ( [facility] 03/10/2017 10:37) Final results Test Result Flag Units (Reference) URINE DRUG SCREEN POSITIVE,Unconfirmed DRUGS DETECTED: Amphetamines~~Opiates The urine drug screen is a qualitative screening test fordrug overdose and abuse. All screen results should beconsidered as presumptive.Drugs screened for are as follows:BenzodiazepinesCocaineAmphetamines/MetamphetaminesTHC (Tetrahydrocannabinol)OpiatesBarbituratesTCA (Tricyclic Antidepressants)MethadonePositive results are unconfirmed. For confirmation, notifythe lab for the specimen to be sent to the reference lab.All confirmations must be performed by a differentmethodology.The ingestion of natural herbal and plant productscontaining Ephedra/Ephedra metabolites can produce in urineone or more substances capable of cross reacting withamphetamine/methamphetamine immunoassays. This testprovides a preliminary result only. A more specificalternative chemical method must be used to obtain aconfirmed analytical result. Salicylate Level: (KEITH: 03/10/2017 09:45) ( [facility] 03/10/2017 10:51) Final results Test Result Flag Units (Reference) SALICYLATE 3.0 mg/dL (2.8-20) CHEM 13 PANEL: (KEITH: 03/10/2017 09:45) ( [facility] 03/10/2017 11:35) Final results Test Result Flag Units (Reference) GLUCOSE 86 mg/dL (70-110) BUN 12 mg/dL (7-18) CREATININE 0.9 mg/dL (0.6-1.3) Estimated GFR >60 mL/min Estimated GFR- >60 mL/min Note: Persistent reduction over 3 months in eGFR<60 mL/min/1.73 m2 defines CKD. Patients with eGFR values>=60 mL/min/1.73 m2 may also have CKD if evidence ofpersistent proteinuria. Additional information may be foundat www.kidney.org. SODIUM 143 mmol/L (136-145) POTASSIUM 3.8 mmol/L (3.5-5.1) CHLORIDE 102 mmol/L (98-107) CARBON DIOXIDE 26 mmol/L (21-32) CALCIUM 9.3 mg/dL (8.5-10.1) TOTAL PROTEIN 8.5 H g/dL (6.4-8.2) ALBUMIN 3.9 g/dL (3.3-5.0) BILIRUBIN, TOTAL 0.7 mg/dL (0.0-1.0) ALKALINE PHOSPHATASE 83 U/L (46-116) AST (SGOT) 49 H U/L (15-37) ALT (SGPT) 72 U/L (12-78) MAGNESIUM 2.0 mg/dL (1.8-2.4) CPK 660 H U/L (24-260) TROPONIN I <0.05 ng/mL (0.00-1.5) TROPONIN REFERENCE RANGE:<0.1 NEGATIVE0.1-1.5 INDETERMINANT>1.5 POSITIVE ETHYL ALCOHOL <3 L mg/dL (3-10) CK-MB 3.7 H ng/mL (0.5-3.2) %CKMB 0.6 % (0.0-4.0) ACETAMINOPHEN < 10 L ug/mL (10-30) . PROGRESS AND PROCEDURES Course of Care: 17:42 03/10/17. Pt re-evaluated. Now sober and able to hold a normal conversation. No SI/HI. Disposition: Discharged in good and improved condition. Condition: good. CLINICAL IMPRESSION Chronic substance abuse- heroin, methamphetamines with intoxication. INSTRUCTIONS Your Current Medications: CONTINUE TAKING THE FOLLOWING MEDICATIONS: Unable to Obtain*. Follow-up: Screening today revealed the patient's blood pressure to be in the pre-hypertensive range. The patient should follow up with a primary care provider for blood pressure management. Follow-up with: [facility], , , [address], , [place], [address] Follow up in about two days. Call for an appointment. (Electronically signed by Oneil Bazan Dr. 03/11/2017 20:20)
--- NOTE | 2017-03-10 17:42 | ED ORDER SUMMARY ---
..... Patient: NGUYEN BONILLA OrderSheet [facility] VisitID: [id number] [address] [place] [address] 26y, M Registration Date/Time: 03/10/2017 ORDER SHEET Weight: 77.1 kg (estimated) Allergies: Unable to Obtain GENERAL ORDERS: UA-Culture if indicated Urgent (:03/10/2017 Virgil ECHEVERRIA) (Ack 9:10 TBergley) (10:18 MWinterer R.N.) Cardiac Panel Stat (03/10/2017 Virgil ECHEVERRIA) (Ack 9:10 TBergley) (10:18 MWinterer R.N.) Urine Drug Screen Urgent (03/10/2017 Virgil ECHEVERRIA) (Ack 9:10 TBergley) (10:18 MWinterer R.N.) Acetaminophen Level Urgent (03/10/2017 Virgil ECHEVERRIA) (Ack 9:10 TBergley) (10:18 MWinterer R.N.) Ethyl Alcohol Urgent (:03/10/2017 Virgil ECHEVERRIA) (Ack 9:10 TBergley) (10:18 MWinterer R.N.) Salicylate Level Urgent (03/10/2017 Virgil ECHEVERRIA) (Ack 9:10 TBergley) (10:18 MWinterer R.N.) MEDICATION ORDERS: IV FLUIDS: IV Saline Lock (03/10/2017 Virgil ECHEVERRIA) (Ack 9:11 MWinterer R.N.) (10:17 MWinterer R.N.) ORDER SHEET NOTES: [Electronically signed by Micaela Martino R.N. (18:33 03/10/2017)] [Electronically signed by Oneil Bazan Dr. (20:20 03/11/2017)] [Electronically locked/signed by Micaela Martino R.N. (18:33 03/10/2017)]
--- NOTE | 2017-03-10 17:42 | ED NURSING NOTES ---
Clinical Report - Nurses [facility] [address] [place] [address] 03/10/2017 9:00 Patient: NGUYEN BONILLA TRIAGE Acuity: LEVEL 3. Chief Complaint: BIZARRE BEHAVIOR. Alert. No acute distress. --08:53 Micaela Martino R.N. 08:44 03/10/17. BP: 172/98. HR: 130. RR: 24. O2 saturation: 100%. Pain level now unable to obtain due to patient condition. --08:53 Micaela Martino R.N. Weight: 77.1 kg estimated. Height/Length: 66 inches Estimated. BMI: 27.4. Growth Chart Percentile: Weight: 100%. Height/Length: 100%. --08:51 Micaela Martino R.N. Medications Unable to Obtain. --08:50 Micaela Martino R.N. Allergies Unable to Obtain. --08:50 Micaela Martino R.N. History Arrived by EMS. Historian: EMS. Unaccompanied. Primary physician (unknown). Onset. (unknown). ( EMS was called to [facility] for person with bizarre behavior. EMS found pt unable to answer questions and acting strange. EMS states police requested pt be brought in invol. EMS states plain clothes police officer is on way to ED. [employer] officer in ED states he has no information on patient.). Has been feeling agitated. PAST MEDICAL HX: Unknown. SURGERY HX: Unobtainable due to patient's altered mental status. SELF HARM ASSESSMENT: A self harm assessment was performed. In the ED the patient has been agitated, restless, confused and non-communicative. He was placed in a safe room. Clothes and valuables were removed and placed at the nurses station. FALL RISK ASSESSMENT: Fall risk assessment completed. No fall risk identified. NUTRITIONAL RISK ASSESSMENT: The nutritional risk assessment revealed no deficiencies. --08:53 Micaela Martino R.N. Assessment GENERAL / NEURO / PSYCH: Alert. Appears in no acute distress. He is disoriented, has poor eye contact, appears restless and agitated and appears unkempt. The patient is disoriented. RESPIRATORY: Respirations not labored. CVS: Capillary refill less than 2 seconds. SKIN: Mucous membranes are pink. Skin is warm and dry. --08:53 Micaela Martino R.N. Interventions Suicide precautions initiated. To room. Transported via stretcher by EMS. --08:53 Micaela Martino R.N. PHYSICAL ASSESSMENT To room via stretcher. GENERAL / NEURO / PSYCH: Appears anxious. The patient is disoriented to person, time and situation. Poor eye contact. Patient is uncommunicative. Patient appears agitated: hyperactive body language. Patient appears unkempt. Poor hygiene and marked body odor. Clothes are dirty. Hair is dirty. RESPIRATORY: Respirations not labored. CVS: Capillary refill less than 2 seconds. SKIN: Skin is warm and dry. Skin color is within normal limits. --08:56 Micaela Martino R.N. NURSING PROGRESS NOTES Patient gowned. Suicide precautions initiated: a safety sweep of the room has been completed. Room made safe. Continuous one on one supervision, checks performed every 15 minutes, clothing / valuables removed and placed in the safe. See restraint documentation. ED Physician has been notified. Bed placed in lowest position. Brakes of bed on. Patient ready for evaluation- chart flagged and ED physician notified. --08:58 Micaela Martino R.N. 09:47 03/10/2017 Site #1 started via IV in the right antecubital space with an 20g angiocath, with aseptic technique and good blood return; one attempt. Blood drawn: rainbow set. Labeled in the presence of the patient and sent to the lab. Saline lock flushed with 10 mL saline. --10:12 Micaela Martino R.N. late entry -09:45. Checked patient name and birthdate: patient confirmed urine collected with return of chaya-colored clear urine; sample sent to lab for urinalysis and drug screen. Specimen labeled in the presence of the patient (pt was able to stand and urinate in urinal). --10:14 Micaela Martino R.N. 10:19 03/10/17. ( Pt drinking water. Pt on continual monitor.). --10:19 Micaela Martino R.N. 10:51 03/10/17. ( Pt does not answer questions. Pt offered urinal and given apple juice. Lunch ordered.). --10:51 Micaela Martino R.N. 11:57 03/10/17. ( Pt given sandwich, juice, milk and fruit.). --11:57 Micaela Martino R.N. ( Pt voided 400 mL in urinal. Pt given more water. Pt does not answer questions, yet says thank you when given food or water.). --14:36 Micaela Martino R.N. 14:36 03/10/17. BP: 137/77. HR: 106. RR: 20. O2 saturation: 99% on room air. Temp: 99 F (temporal). Pain level now unable to obtain. --14:36 Micaela Martino R.N. 17:11 03/10/17. The patient is sleeping. --17:11 Micaela Martino R.N. 17:37 03/10/17. ( Pt alert and answering questions appropriately. Pt given turkey sandwich and water. Pt voided 400 mL in urinal.). --17:37 Micaela Martino R.N. DISPOSITION / DISCHARGE Departure time: 18:00 Mar 10 2017. Condition at departure: improved and stable. No learning barriers present. Discharge instructions provided and reviewed with the patient. Patient verbalized understanding. Written instructions provided in [place]i. The patient was discharged by the physician. He was discharged home. He left the Emergency Department ambulatory and via bus and with fare provided. 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 --18:32 Micaela Martino R.N. 18:31 03/10/17. BP: 131/75. HR: 81. RR: 20. O2 saturation: 100% on room air. Temp: 98.9 F (oral). Pain level now: 0/10. --18:32 Micaela Martino R.N. 18:23 03/10/2017 Site #1 removed upon discharge. Catheter intact. Manual pressure and bandage applied. --18:33 Micaela Martino R.N. Locked/Released at 03/10/2017 18:33 by Micaela Martino R.N.
--- NOTE | 2017-03-10 17:42 | ED ORDER SUMMARY ---
..... Patient: NGUYEN BONILLA OrderSheet [facility] VisitID: [id number] [address] [place] [address] 26y, M Registration Date/Time: 03/10/2017 ORDER SHEET Weight: 77.1 kg (estimated) Allergies: Unable to Obtain GENERAL ORDERS: UA-Culture if indicated Urgent (:03/10/2017 Virgil ECHEVERRIA) (Ack 9:10 TBergley) (10:18 MWinterer R.N.) Cardiac Panel Stat (03/10/2017 Virgil ECHEVERRIA) (Ack 9:10 TBergley) (10:18 MWinterer R.N.) Urine Drug Screen Urgent (03/10/2017 Virgil ECHEVERRIA) (Ack 9:10 TBergley) (10:18 MWinterer R.N.) Acetaminophen Level Urgent (03/10/2017 Virgil ECHEVERRIA) (Ack 9:10 TBergley) (10:18 MWinterer R.N.) Ethyl Alcohol Urgent (:03/10/2017 Virgil ECHEVERRIA) (Ack 9:10 TBergley) (10:18 MWinterer R.N.) Salicylate Level Urgent (03/10/2017 Virgil ECHEVERRIA) (Ack 9:10 TBergley) (10:18 MWinterer R.N.) MEDICATION ORDERS: IV FLUIDS: IV Saline Lock (03/10/2017 Virgil ECHEVERRIA) (Ack 9:11 MWinterer R.N.) (10:17 MWinterer R.N.) ORDER SHEET NOTES: [Electronically signed by Micaela Martino R.N. (18:33 03/10/2017)] [Electronically signed by Oneil Bazan Dr. (20:20 03/11/2017)] [Electronically locked/signed by Micaela Martino R.N. (18:33 03/10/2017)]
--- NOTE | 2017-03-10 17:42 | ED CLINICAL REPORT ---
Clinical Report - Physicians/Mid Levels [facility] [address] [place] [address] 03/10/2017 9:00 Patient: NGUYEN BONILLA Time Seen: 09:02; initial patient contact. Arrived- By ambulance. Historian- EMS personnel. History limited by intoxication. Physical Exam limited by intoxication. HISTORY OF PRESENT ILLNESS Chief Complaint: CHANGED MENTAL STATUS and CONFUSION. The patient has been disoriented. (re-evaluated after pt sobered up). This started today and is still present. (unknown). Patient was last known well (unknown). History of recent drug use Unknown. Usually is alert and oriented X3 and usually has normal mobility. Similar symptoms previously: Many times. Recent medical care: Not recently seen/assessed. REVIEW OF SYSTEMS Unobtainable due to patient's altered mental status. No fever, headache, head injury, dizziness or chest pain. No difficulty breathing, blurred vision, abdominal pain, nausea or diarrhea. No vomiting. All systems otherwise negative, except as recorded above. PAST HISTORY ( Unknown). SOCIAL HISTORY Smoker - current status unknown. Alcohol use. (Unknown). History of drug use Unknown. ADDITIONAL NOTES The nursing notes have been reviewed. PHYSICAL EXAM Vital Signs: 03/10/2017 08:44 BP: 172/98. HR: 130. RR: 24. O2 saturation: 100%. Have been reviewed. Hypertensive. Tachycardic. Tachypneic. Temperature normal. Oxygen saturation normal. Appearance: Alert. He appears intoxicated, is restless, appears unkempt and older than stated age and shows no apparent trauma. He has normal color and is well hydrated, well nourished and well developed. Head: Head atraumatic. ENT: Airway intact. Dry mucous membranes present. CVS: Normal heart rate and rhythm. Heart sounds normal. Respiratory: No respiratory distress. Breath sounds normal. Abdomen: Soft and nontender. No organomegaly. The bowel sounds are not abnormal. Skin: Skin warm and dry. Normal skin color. Extremities: No lower extremity edema. Neuro: Altered mental status. (Intoxicated). LABS, X-RAYS, AND EKG Laboratory Tests: UA-Culture if indicated: (KEITH: 03/10/2017 09:45) ( [facility] 03/10/[facility] 10:59) Final results Test Result Flag Units (Reference) URINE COLOR YELLOW URINE APPEARANCE CLEAR URINE GLUCOSE NEGATIVE (NEGATIVE) URINE BILIRUBIN NEGATIVE (NEGATIVE) URINE KETONE 3 (NEGATIVE) URINE SPECIFIC GRAVITY 1.020 (1.010-1.030) URINE PH 6.0 (5.0-8.0) URINE PROTEIN TRACE (NEGATIVE) URINE UROBILINOGEN 1.0 EU/dL (0.2-1.0) URINE NITRITE NEGATIVE (NEGATIVE) URINE BLOOD NEGATIVE (NEGATIVE) URINE LEUK ESTERASE NEGATIVE (NEGATIVE) URINE RBC 0-1 rbc/hpf (0-1) URINE WBC NONE SEEN wbc/hpf (0-1) URINE EPITHELIAL CELLS 0-1 EPI/hpf (0-5) URINE BACTERIA NONE SEEN (NONE SEEN) URINE COMMENT CULT NOT INDICATED URINE CULTURES ARE SET-UP BASED ON THE FOLLOWING CRITERIA:POSITIVE NITRITEPOSITIVE LEUKOCYTE ESTERASEGREATER THAN 10 WHITE BLOOD CELLSMODERATE (2+) OR GREATER BACTERIA CBC w Diff: (KEITH: 03/10/2017 09:45) ( [facility] 03/10/2017 10:26) Final results Test Result Flag Units (Reference) WHITE BLOOD COUNT 12.2 H K/uL (4.5-11.5) RED BLOOD COUNT 4.92 M/uL (4.50-5.90) HEMOGLOBIN 14.0 gm/dL (13.5-17.5) HEMATOCRIT 42.4 % (41.0-53.0) MEAN CELL VOLUME 86 fL (80-100) MEAN CORPUSCULAR HGB 29 pg (26-34) MEAN CORPUSCULAR HGB CONC 33 g/dL (31-37) RED CELL DISTRIBUTION WIDTH 14.5 % (11.6-14.8) PLATELET COUNT 345 K/uL (150-400) NEUTROPHIL % 79.7 H % (50-75) LYMPH % 12.7 L % (25-40) MONO % 7.2 % (3-14) EOSINOPHIL % 0.1 % (0-4) BASOPHIL % 0.3 % (0-2) [id number]: (KEITH: 03/10/2017 09:45) ( [facility] 03/10/2017 10:37) Final results Test Result Flag Units (Reference) URINE DRUG SCREEN POSITIVE,Unconfirmed DRUGS DETECTED: Amphetamines~~Opiates The urine drug screen is a qualitative screening test fordrug overdose and abuse. All screen results should beconsidered as presumptive.Drugs screened for are as follows:BenzodiazepinesCocaineAmphetamines/MetamphetaminesTHC (Tetrahydrocannabinol)OpiatesBarbituratesTCA (Tricyclic Antidepressants)MethadonePositive results are unconfirmed. For confirmation, notifythe lab for the specimen to be sent to the reference lab.All confirmations must be performed by a differentmethodology.The ingestion of natural herbal and plant productscontaining Ephedra/Ephedra metabolites can produce in urineone or more substances capable of cross reacting withamphetamine/methamphetamine immunoassays. This testprovides a preliminary result only. A more specificalternative chemical method must be used to obtain aconfirmed analytical result. Salicylate Level: (KEITH: 03/10/2017 09:45) ( [facility] 03/10/2017 10:51) Final results Test Result Flag Units (Reference) SALICYLATE 3.0 mg/dL (2.8-20) CHEM 13 PANEL: (KEITH: 03/10/2017 09:45) ( [facility] 03/10/2017 11:35) Final results Test Result Flag Units (Reference) GLUCOSE 86 mg/dL (70-110) BUN 12 mg/dL (7-18) CREATININE 0.9 mg/dL (0.6-1.3) Estimated GFR >60 mL/min Estimated GFR- >60 mL/min Note: Persistent reduction over 3 months in eGFR<60 mL/min/1.73 m2 defines CKD. Patients with eGFR values>=60 mL/min/1.73 m2 may also have CKD if evidence ofpersistent proteinuria. Additional information may be foundat www.kidney.org. SODIUM 143 mmol/L (136-145) POTASSIUM 3.8 mmol/L (3.5-5.1) CHLORIDE 102 mmol/L (98-107) CARBON DIOXIDE 26 mmol/L (21-32) CALCIUM 9.3 mg/dL (8.5-10.1) TOTAL PROTEIN 8.5 H g/dL (6.4-8.2) ALBUMIN 3.9 g/dL (3.3-5.0) BILIRUBIN, TOTAL 0.7 mg/dL (0.0-1.0) ALKALINE PHOSPHATASE 83 U/L (46-116) AST (SGOT) 49 H U/L (15-37) ALT (SGPT) 72 U/L (12-78) MAGNESIUM 2.0 mg/dL (1.8-2.4) CPK 660 H U/L (24-260) TROPONIN I <0.05 ng/mL (0.00-1.5) TROPONIN REFERENCE RANGE:<0.1 NEGATIVE0.1-1.5 INDETERMINANT>1.5 POSITIVE ETHYL ALCOHOL <3 L mg/dL (3-10) CK-MB 3.7 H ng/mL (0.5-3.2) %CKMB 0.6 % (0.0-4.0) ACETAMINOPHEN < 10 L ug/mL (10-30) . PROGRESS AND PROCEDURES Course of Care: 17:42 03/10/17. Pt re-evaluated. Now sober and able to hold a normal conversation. No SI/HI. Disposition: Discharged in good and improved condition. Condition: good. CLINICAL IMPRESSION Chronic substance abuse- heroin, methamphetamines with intoxication. INSTRUCTIONS Your Current Medications: CONTINUE TAKING THE FOLLOWING MEDICATIONS: Unable to Obtain*. Follow-up: Screening today revealed the patient's blood pressure to be in the pre-hypertensive range. The patient should follow up with a primary care provider for blood pressure management. Follow-up with: [facility], , , [address], , [place], [address] Follow up in about two days. Call for an appointment. (Electronically signed by Oneil Bazan Dr. 03/11/2017 20:20)
--- NOTE | 2017-03-10 17:42 | ED NURSING NOTES ---
Clinical Report - Nurses [facility] [address] [place] [address] 03/10/2017 9:00 Patient: NGUYEN BONILLA TRIAGE Acuity: LEVEL 3. Chief Complaint: BIZARRE BEHAVIOR. Alert. No acute distress. --08:53 Micaela Martino R.N. 08:44 03/10/17. BP: 172/98. HR: 130. RR: 24. O2 saturation: 100%. Pain level now unable to obtain due to patient condition. --08:53 Micaela Martino R.N. Weight: 77.1 kg estimated. Height/Length: 66 inches Estimated. BMI: 27.4. Growth Chart Percentile: Weight: 100%. Height/Length: 100%. --08:51 Micaela Martino R.N. Medications Unable to Obtain. --08:50 Micaela Martino R.N. Allergies Unable to Obtain. --08:50 Micaela Martino R.N. History Arrived by EMS. Historian: EMS. Unaccompanied. Primary physician (unknown). Onset. (unknown). ( EMS was called to [facility] for person with bizarre behavior. EMS found pt unable to answer questions and acting strange. EMS states police requested pt be brought in invol. EMS states patrol police lieutenant is on way to ED. [employer] officer in ED states he has no information on patient.). Has been feeling agitated. PAST MEDICAL HX: Unknown. SURGERY HX: Unobtainable due to patient's altered mental status. SELF HARM ASSESSMENT: A self harm assessment was performed. In the ED the patient has been agitated, restless, confused and non-communicative. He was placed in a safe room. Clothes and valuables were removed and placed at the nurses station. FALL RISK ASSESSMENT: Fall risk assessment completed. No fall risk identified. NUTRITIONAL RISK ASSESSMENT: The nutritional risk assessment revealed no deficiencies. --08:53 Micaela Martino R.N. Assessment GENERAL / NEURO / PSYCH: Alert. Appears in no acute distress. He is disoriented, has poor eye contact, appears restless and agitated and appears unkempt. The patient is disoriented. RESPIRATORY: Respirations not labored. CVS: Capillary refill less than 2 seconds. SKIN: Mucous membranes are pink. Skin is warm and dry. --08:53 Micaela Martino R.N. Interventions Suicide precautions initiated. To room. Transported via stretcher by EMS. --08:53 Micaela Martino R.N. PHYSICAL ASSESSMENT To room via stretcher. GENERAL / NEURO / PSYCH: Appears anxious. The patient is disoriented to person, time and situation. Poor eye contact. Patient is uncommunicative. Patient appears agitated: hyperactive body language. Patient appears unkempt. Poor hygiene and marked body odor. Clothes are dirty. Hair is dirty. RESPIRATORY: Respirations not labored. CVS: Capillary refill less than 2 seconds. SKIN: Skin is warm and dry. Skin color is within normal limits. --08:56 Micaela Martino R.N. NURSING PROGRESS NOTES Patient gowned. Suicide precautions initiated: a safety sweep of the room has been completed. Room made safe. Continuous one on one supervision, checks performed every 15 minutes, clothing / valuables removed and placed in the safe. See restraint documentation. ED Physician has been notified. Bed placed in lowest position. Brakes of bed on. Patient ready for evaluation- chart flagged and ED physician notified. --08:58 Micaela Martino R.N. 09:47 03/10/2017 Site #1 started via IV in the right antecubital space with an 20g angiocath, with aseptic technique and good blood return; one attempt. Blood drawn: rainbow set. Labeled in the presence of the patient and sent to the lab. Saline lock flushed with 10 mL saline. --10:12 Micaela Martino R.N. late entry -09:45. Checked patient name and birthdate: patient confirmed urine collected with return of chaya-colored clear urine; sample sent to lab for urinalysis and drug screen. Specimen labeled in the presence of the patient (pt was able to stand and urinate in urinal). --10:14 Micaela Martino R.N. 10:19 03/10/17. ( Pt drinking water. Pt on continual monitor.). --10:19 Micaela Martino R.N. 10:51 03/10/17. ( Pt does not answer questions. Pt offered urinal and given apple juice. Lunch ordered.). --10:51 Micaela Martino R.N. 11:57 03/10/17. ( Pt given sandwich, juice, milk and fruit.). --11:57 Micaela Martino R.N. ( Pt voided 400 mL in urinal. Pt given more water. Pt does not answer questions, yet says thank you when given food or water.). --14:36 Micaela Martino R.N. 14:36 03/10/17. BP: 137/77. HR: 106. RR: 20. O2 saturation: 99% on room air. Temp: 99 F (temporal). Pain level now unable to obtain. --14:36 Micaela Martino R.N. 17:11 03/10/17. The patient is sleeping. --17:11 Micaela Martino R.N. 17:37 03/10/17. ( Pt alert and answering questions appropriately. Pt given turkey sandwich and water. Pt voided 400 mL in urinal.). --17:37 Micaela Martino R.N. DISPOSITION / DISCHARGE Departure time: 18:00 Mar 10 2017. Condition at departure: improved and stable. No learning barriers present. Discharge instructions provided and reviewed with the patient. Patient verbalized understanding. Written instructions provided in Lao. The patient was discharged by the physician. He was discharged home. He left the Emergency Department ambulatory and via bus and with fare provided. 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 --18:32 Micaela Martino R.N. 18:31 03/10/17. BP: 131/75. HR: 81. RR: 20. O2 saturation: 100% on room air. Temp: 98.9 F (oral). Pain level now: 0/10. --18:32 Micaela Martino R.N. 18:23 03/10/2017 Site #1 removed upon discharge. Catheter intact. Manual pressure and bandage applied. --18:33 Micaela Martino R.N. Locked/Released at 03/10/2017 18:33 by Micaela Martino R.N.
--- NOTE | 2017-03-11 20:21 | ED MED RECONCILIATION SUMMARY ---
Patient: NGUYEN BONILLA Medication Reconciliation Report [facility] VisitID: [id number] [address] [place] [address] 26y, M Registration Date/Time: 03/10/2017 Weight: 77.1 kg Height/Length: 66 in. BMI: 27.4 ALLERGIES: Unable to Obtain The patient's Home Medications are listed below: Unable to obtain. The source(s) of the original Home Medication information: Not obtained. The following Medications were given to the patient in the Emergency Department: None. The following Medications were prescribed to the patient: None.
--- NOTE | 2017-03-11 20:21 | ED DISCHARGE INSTRUCTIONS ---
Patient: NGUYEN BONILLA General Instructions [facility] VisitID: [id number] [address], [place] [address] 26y, M Registration Date/Time: 03/10/2017 Chronic substance abuse- heroin, methamphetamines with intoxication. INSTRUCTIONS Your Current Medications: CONTINUE TAKING THE FOLLOWING MEDICATIONS: Unable to Obtain*. Follow-up: Screening today revealed the patient's blood pressure to be in the pre-hypertensive range. The patient should follow up with a primary care provider for blood pressure management. Follow-up with: [facility], , , [address], , [place], [address] Follow up in about two days. Call for an appointment. ADDITIONAL INFORMATION Drug Abuse Use and abuse of such drugs as marijuana, amphetamines (speed, crank), cocaine, heroin or prescription pain medicines (Vicodin, codeine), sedatives and sleeping pills (Valium, Klonopin), PCP, mescaline and LSD may lead to addiction or dependence. Once this occurs, you are at greater risk for any of the following: Craving for the drug and unable to stop using the drug even though you think you want to stop (psychological dependence) Drug withdrawal symptoms if you stop taking the drug (physical dependence) Loss of your job or your family Arrest, conviction and senior living sentence for possession of an illegal substance or for driving under the influence of such a substance Accidental injuries to yourself or others while you are under the influence of the drug (in a car or at home). HIV infection (much greater risk if you use IV drugs) Other sexually transmitted diseases (herpes, chlamydia, gonorrhea and others) Severe and fatal infection of the heart valves (if you use IV drugs) Stroke, heart attack, hepatitis B or C, kidney failure from overdose Home Care: Admit you have a drug problem. Ask for help from your family and close friends. Seek professional help. This could be in the form of individual psychotherapy or counseling or an outpatient, inpatient, or residential drug treatment program. Join a self-help group for drug abuse. Avoid friends who abuse drugs themselves or tempt you to continue abusing drugs. Eat a balanced diet and begin a regular exercise program. Follow Up with your doctor or as advised by our staff. Contact one of the resources below for help. National [place] on Alcoholism and Drug Dependence www.ncadd.org 536-886-GIEB Narcotics Anonymous www.na.org 978-726-1720 National Alcohol and Substance Abuse Information Center (for referral to treatment programs) www.addictionSonatype.[employer] 636-764-2324 Get Prompt Medical Attention if any of the following occur: Agitation, anxiety, unable to sleep Unintended weight loss (more than 10 to 15 pounds over 3 months) Seizure Chest pain Fever of 100.4F (38C) or higher, or as directed by your healthcare provider Excess drowsiness or inability to be awakened Shortness of breath Slow breathing under 8 breaths per minute Cough with colored sputum Redness, swelling or tenderness at an injection site You have been given the following additional information: Drug Abuse (Electronically signed by Oneil Bazan Dr. 03/11/2017 20:20)
--- NOTE | 2017-03-11 20:21 | ED MAR SUMMARY ---
..... Medication Administration Record [facility] [address] [place], [place] [id number] Patient: NGUYEN BONILLA Visit ID: [id number] 26y, M Weight: 77.1 kg Height/Length: 66 in BMI: 27.4 ALLERGIES: Unable to Obtain
--- NOTE | 2017-03-11 20:21 | ED MAR SUMMARY ---
..... Medication Administration Record [facility] [address] [place], [place] [id number] Patient: NGUYEN BONILLA Visit ID: [id number] 26y, M Weight: 77.1 kg Height/Length: 66 in BMI: 27.4 ALLERGIES: Unable to Obtain
--- NOTE | 2017-03-11 20:21 | ED DISCHARGE INSTRUCTIONS ---
Patient: NGUYEN BONILLA General Instructions [facility] VisitID: [id number] [address], [place] [address] 26y, M Registration Date/Time: 03/10/2017 Chronic substance abuse- heroin, methamphetamines with intoxication. INSTRUCTIONS Your Current Medications: CONTINUE TAKING THE FOLLOWING MEDICATIONS: Unable to Obtain*. Follow-up: Screening today revealed the patient's blood pressure to be in the pre-hypertensive range. The patient should follow up with a primary care provider for blood pressure management. Follow-up with: [facility], , , [address], , [place], [address] Follow up in about two days. Call for an appointment. ADDITIONAL INFORMATION Drug Abuse Use and abuse of such drugs as marijuana, amphetamines (speed, crank), cocaine, heroin or prescription pain medicines (Vicodin, codeine), sedatives and sleeping pills (Valium, Klonopin), PCP, mescaline and LSD may lead to addiction or dependence. Once this occurs, you are at greater risk for any of the following: Craving for the drug and unable to stop using the drug even though you think you want to stop (psychological dependence) Drug withdrawal symptoms if you stop taking the drug (physical dependence) Loss of your job or your family Arrest, conviction and usp sentence for possession of an illegal substance or for driving under the influence of such a substance Accidental injuries to yourself or others while you are under the influence of the drug (in a car or at home). HIV infection (much greater risk if you use IV drugs) Other sexually transmitted diseases (herpes, chlamydia, gonorrhea and others) Severe and fatal infection of the heart valves (if you use IV drugs) Stroke, heart attack, hepatitis B or C, kidney failure from overdose Home Care: Admit you have a drug problem. Ask for help from your family and close friends. Seek professional help. This could be in the form of individual psychotherapy or counseling or an outpatient, inpatient, or residential drug treatment program. Join a self-help group for drug abuse. Avoid friends who abuse drugs themselves or tempt you to continue abusing drugs. Eat a balanced diet and begin a regular exercise program. Follow Up with your doctor or as advised by our staff. Contact one of the resources below for help. National [place] on Alcoholism and Drug Dependence www.ncadd.org 952-756-JVCX Narcotics Anonymous www.na.org 790-409-2413 National Alcohol and Substance Abuse Information Center (for referral to treatment programs) www.addictionCivo.[employer] 314-844-7293 Get Prompt Medical Attention if any of the following occur: Agitation, anxiety, unable to sleep Unintended weight loss (more than 10 to 15 pounds over 3 months) Seizure Chest pain Fever of 100.4F (38C) or higher, or as directed by your healthcare provider Excess drowsiness or inability to be awakened Shortness of breath Slow breathing under 8 breaths per minute Cough with colored sputum Redness, swelling or tenderness at an injection site You have been given the following additional information: Drug Abuse (Electronically signed by Oneil Bazan Dr. 03/11/2017 20:20)
--- NOTE | 2017-03-11 20:21 | ED MED RECONCILIATION SUMMARY ---
Patient: NGUYEN BONILLA Medication Reconciliation Report [facility] VisitID: [id number] [address] [place] [address] 26y, M Registration Date/Time: 03/10/2017 Weight: 77.1 kg Height/Length: 66 in. BMI: 27.4 ALLERGIES: Unable to Obtain The patient's Home Medications are listed below: Unable to obtain. The source(s) of the original Home Medication information: Not obtained. The following Medications were given to the patient in the Emergency Department: None. The following Medications were prescribed to the patient: None.
== END 2017-03-10 18:00 | disposition home or self-care (01) ==
LOC: ED SRH 08:59 → EDBD 09:00 → ED SRH 18:00
DX: F11.129 Opioid abuse with intoxication, unspecified (principal); F15.129 Other stimulant abuse with intoxication, unspecified
CPT/HCPCS: 90004; 90100; 90616; 90617; 90939; 92010; 92610; 92720; 92780; 95059; 97000

== ENCOUNTER 2017-03-21 09:18 | Emergency (ER) | payer OTHER ==
--- NOTE | 2017-03-21 13:38 | ED ORDER SUMMARY ---
..... Patient: NGUYEN BONILLA OrderSheet [facility] VisitID: [id number] [address] [place] [address] 26y, M Registration Date/Time: 03/21/2017 ORDER SHEET Weight: 81.6 kg (estimated) Allergies: Vancomycin GENERAL ORDERS: Cardiac Panel Stat (:03/21/2017 Danny ECHEVERRIA) (Ack 9:30 TBergley) (9:36 Elizabetheck R.N.) UA-Culture if indicated Urgent (:03/21/2017 Danny ECHEVERRIA) (Ack 9:30 TBergley) (11:16 Elizabetheck R.N.) Urine Drug Screen Urgent (03/21/2017 Danny ECHEVERRIA) (Ack 9:30 TBergley) (11:16 JSimbeck R.N.) - (INCREASE IVF TO 1000 ML PER HOUR X 1 HOUR) (09:43 03/21/2017 Danny ECHEVERRIA) (9:52 Verenice R.N.) Acetaminophen Level Urgent (10:14 03/21/2017 Danny ECHEVERRIA) (Ack 10:20 KHoerner) (10:20 KHoerner) Salicylate Level Urgent (10:14 03/21/2017 Danny ECHEVERRIA) (Ack 10:20 KHoerner) (10:20 KHoerner) -- (RECHECK TEMP) (11:19 03/21/2017 Danny ECHEVERRIA) (11:22 TBergley) - (START LOOKING FOR A RIDE HOME.) (11:38 03/21/2017 Danny ECHEVERRIA) (Ack 11:51 TBergley) (13:38 KHoerner) MEDICATION ORDERS: IV FLUIDS: IV NS : initial bolus none -, then 500 mL/hr for 3h (NOW); Urgent (09:03/21/2017 Danny ECHEVERRIA) (Ack 9:41 Verenice R.N.) (9:52 Verenice R.N.) LORazepam IV 1 mg (NOW) (:03/21/2017 Danny ECHEVERRIA) (9:41 Verenice R.N.) LORazepam IV 0.5 mg (NOW) (09:43 03/21/2017 Danny ECHEVERRIA) (9:52 Verenice Garcia) LORazepam IV 0.5 mg (NOW) (10:06 03/21/2017 Danny ECHEVERRIA) (10:25 Verenice Garcia) ORDER SHEET NOTES: [Electronically signed by Corie Eaton R.N. (14:29 03/21/2017)] [Electronically signed by Flavio Conteh MD (13:29 03/22/2017)] [Electronically locked/signed by Corie Eaton R.N. (14:29 03/21/2017)]
--- NOTE | 2017-03-21 13:38 | ED NURSING NOTES ---
Clinical Report - Nurses [place] [address] [place] [address] 03/21/2017 9:20 Patient: NGUYEN BONILLA TRIAGE Triage time 09:21. Acuity: LEVEL 3. Chief Complaint: ALTERED MENTAL STATUS and DISORIENTED and ACTING DIFFERENTLY. YAKELIN COMA SCORE: Yakelin Coma Scale: 15- eyes open spontaneously (4); best verbal response- oriented x 4 (5); best motor response- obeys commands (6). --09:34 Corie Eaton R.N. 09:21 03/21/17. BP: 134/94. HR: 142. RR: 22. O2 saturation: 100% on room air. Temp: 99.6 F (oral). Pain level now: cannot qualify. --09:34 Corie Eaton R.N. Weight: 81.6 kg estimated. Height/Length: 70 inches Estimated. BMI: 25.8. --09:26 Corie Eaton R.N. Medications Antidepressant. CloNIDine HCl Oral. Percocet Oral. PriLOSEC Oral. --14:18 Corie Eaton R.N. The following entry was struck by Corie Eaton R.N., 14:19 (03/21/17) Reason - other(pt able to answer). <<STRICKEN ENTRY-- Unknown. --09:23 Corie Eaton R.N. --END STRIKE>>. Allergies Vancomycin. --14:19 Corie Eaton R.N. The following entry was struck by Corie Eaton R.N., 14:19 (03/21/17) Reason - other(pt able to answer now). <<STRICKEN ENTRY-- Unknown. --09:23 Corie Eaton R.N. --END STRIKE>>. History Arrived by EMS. Historian: EMS and patient. Primary physician (unknown). This started today. ( picked up by EMS, found with 2 "needles" on him, restless, scratching and grabbing his head). 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 See EMS report. SOCIAL HX: Smoker - current status unknown. Alcohol use. (unknown). History of drug use. FALL RISK ASSESSMENT: Fall risk assessment completed. Risk factors identified include patient impairment of mobility and cognition. Fall interventions initiated. Patient placed on stretcher. Side rails up x2. Brakes on Bed in low position. FUNCTIONAL ASSESSMENT: Functional assessment performed: mobility impairment present- this mobility impairment is a new problem; cognitive impairment present- this cognitive impairment is a new problem. LEARNING NEEDS ASSESSMENT: A learning needs assessment was performed. Factors affecting the patient's ability to learn include motivation. --09:34 Corie Eaton R.N. SOCIAL HX: Light tobacco smoker- less than 1/2 a pack per day. Occasional alcohol use. History of drug use: methamphetamines, marijuana. --14:22 Corie Eaton R.N. PROBLEMS: Depression. Substance Abuse. Knee Injury. Abscess. Cellulitis. Hypertension. Bursitis. --14:20 Corie Eaton R.N. The following entry was modified by Corie Eaton R.N., 14:20 <<STRICKEN ENTRY-- Unable to obtain. --09:25 Corie Eaton R.N. --END STRIKE>>. ADDITIONAL SURGERIES: ARM SURGERY. LEG SURGERY. --14:20 Corie Eaton R.N. Back Surgery. --14:20 Corie Eaton R.N. The following entry was struck by Corie Eaton R.N., 14:20 <<STRICKEN ENTRY-- Unknown. --09:25 Corie Eaton R.N. --END STRIKE>>. Assessment GENERAL / NEURO / PSYCH: The patient is awake and alert, is oriented, has poor eye contact and appears restless. RESPIRATORY: Respirations not labored. SKIN: Skin is warm. Skin is diaphoretic. --09:34 Corie Eaton R.N. Interventions ID band on patient. To treatment room. --09:34 Corie Eaton R.N. PHYSICAL ASSESSMENT 09:35 03/21/17. To room via stretcher. Patient gowned. GENERAL / NEURO / PSYCH: The patient is awake and alert, is oriented and appears anxious and restless. He has poor eye contact. Patient does not appear neat and clean. RESPIRATORY: Respirations not labored. SKIN: Skin is warm. Skin is diaphoretic. --09:35 Corie Eaton R.N. NURSING PROGRESS NOTES 09:35 03/21/17. Patient gowned. Head of bed elevated. Call light placed in reach. Side rails up x 2. Bed placed in lowest position. Brakes of bed on. --09:36 Corie Eaton R.N. 09:36 03/21/2017 Site #1 started via IV in the left antecubital space with an 20g angiocath, with aseptic technique and good blood return; one attempt. Blood drawn: rainbow set. Saline lock flushed with 10 mL saline (by Jonnathan LÓPEZ). --09:36 Corie Eaton R.N. 09:41 03/21/2017 Lorazepam (LORazepam) IVP 1 mg given over 1 minute(s) via site #1. IV patency established. IV site checked: no pain, redness, or swelling. IV flushed thoroughly pre- and post-medication administration. IVP given by RN. --09:41 Corie Eaton R.N. 09:52 03/21/2017 Lorazepam (LORazepam) IVP 0.5 mg given over 1 minute(s) via site #1. IV patency established. IV site checked: no pain, redness, or swelling. IV flushed thoroughly pre- and post-medication administration. IVP given by RN. --09:52 Corie Eaton R.N. 09:52 03/21/2017 Started bag #1 1000 mL IV Fluids IV NS (Saline); at 1000 mL/hr over 1 hour(s) via site #1 via IV pump. --09:52 Corie Eaton R.N. 09:54 03/21/17. Reassessment after fluids administered and medication administered. Overall patient status is the same- he states feels the same. GENERAL / NEURO / PSYCH: The patient reports anxiety and restlessness. Alert. RESPIRATORY: No respiratory distress. CVS: Cardiac rhythm: sinus tachycardia. SKIN: Skin is warm. --09:54 Corie Eaton R.N. 09:40 03/21/17. HR: 132. RR: 33. --09:54 Corie Eaton R.N. 09:59 03/21/17. BP: 136/60. HR: 137. RR: 20. --09:59 Corie Eaton R.N. 10:10 03/21/2017 Lorazepam (LORazepam) IVP 0.5 mg given over 1 minute(s) via site #1. IV patency established. IV site checked: no pain, redness, or swelling. IV flushed thoroughly pre- and post-medication administration. IVP given by RN. --10:25 Corie Eaton R.N. 10:30 03/21/17. ( pt belongings in locker #2.). --10:30 Linda Barragan 10:42 03/21/2017 Site #1 removed (pt pulled out his IV). --10:47 Corie Eaton R.N. 10:42 03/21/2017 IV Fluids IV NS Discontinued: bag #1 infused. Total amount infused: 1000 mL. --10:47 Corie Eaton R.N. 10:48 pt had calmed for bit, started thrashng around and pulled out his IV. --10:49 Corie Eaton R.N. 11:36 03/21/17. Overall patient status is improved- he states feels the same (appears calmer but says "I'm scared", then asks to be released). GENERAL / NEURO / PSYCH: Alert. Oriented X 4. RESPIRATORY: No respiratory distress. SKIN: Skin is warm. --11:36 Corie Eaton R.N. 11:34 03/21/17. BP: 118/84. HR: 112. RR: 26. O2 saturation: 99% on room air. --11:36 Corie Eaton R.N. 11:44 now states he really isn't comfortable calling anyone to come pick him up at this time. --11:45 Corie Eaton R.N. 12:03/21/17. Temp: 98.4 F (oral). --12:02 Corie Eaton R.N. 12:45 getting out of bed, redirects readily, juice given. --12:54 Corie Eaton R.N. 13:45. Reassessment after fluids administered and medication administered. He is calm. Overall patient status is improved- he states feels better (pt was up and amb in the dept, he had a lunch tray provided and ate 100% of it, he had many boxes of apple juice, he asked for "more ativan", a taxi was called for him, he left the dept amb without assist). GENERAL / NEURO / PSYCH: Affect appears flat. Patient is calm and cooperative. Alert. Oriented X 4. SKIN: Skin is warm and dry. --14:29 Corie Eaton R.N. DISPOSITION / DISCHARGE Departure time: 1345. Condition at departure: improved and stable. Ability to learn limited by poor comprehension. Discharge instructions provided and reviewed with the patient. Patient verbalized understanding. Written instructions provided in Turkmen. The patient was discharged home and unaccompanied at time of discharge. He left the Emergency Department ambulatory. ( asked pt for an address or phone number and the pt stated "I'm a migrant"). FALL RISK ASSESSMENT: Fall risk assessment completed. No fall risk identified. --14:25 Corie Eaton R.N. 13:45 03/21/17. BP: 134/86. HR: 111. RR: 18. O2 saturation: 100% on room air. Temp: 98.1 F. Pain level now: 0/10. --14:25 Corie Eaton R.N. 13:45 03/21/17. Pain level now: 0/10. Additional comments: ERMD aware of pulse rate on discharge. --14:26 Corie Eaton R.N. Locked/Released at 03/21/2017 14:29 by Corie Eaton R.N.
--- NOTE | 2017-03-21 13:38 | ED ORDER SUMMARY ---
..... Patient: NGUYEN BONILLA OrderSheet [facility] VisitID: [id number] [address] [place] [address] 26y, M Registration Date/Time: 03/21/2017 ORDER SHEET Weight: 81.6 kg (estimated) Allergies: Vancomycin GENERAL ORDERS: Cardiac Panel Stat (:03/21/2017 Danny ECHEVERRIA) (Ack 9:30 TBergley) (9:36 Elizabetheck R.N.) UA-Culture if indicated Urgent (:03/21/2017 Danny ECHEVERRIA) (Ack 9:30 TBergley) (11:16 Elizabetheck R.N.) Urine Drug Screen Urgent (03/21/2017 Danny ECHEVERRIA) (Ack 9:30 TBergley) (11:16 JSimbeck R.N.) - (INCREASE IVF TO 1000 ML PER HOUR X 1 HOUR) (09:43 03/21/2017 Danny ECHEVERRIA) (9:52 Verenice R.N.) Acetaminophen Level Urgent (10:14 03/21/2017 Danny ECHEVERRIA) (Ack 10:20 KHoerner) (10:20 KHoerner) Salicylate Level Urgent (10:14 03/21/2017 Danny ECHEVERRIA) (Ack 10:20 KHoerner) (10:20 KHoerner) -- (RECHECK TEMP) (11:19 03/21/2017 Danny ECHEVERRIA) (11:22 TBergley) - (START LOOKING FOR A RIDE HOME.) (11:38 03/21/2017 Danny ECHEVERRIA) (Ack 11:51 TBergley) (13:38 KHoerner) MEDICATION ORDERS: IV FLUIDS: IV NS : initial bolus none -, then 500 mL/hr for 3h (NOW); Urgent (09:03/21/2017 Danny ECHEVERRIA) (Ack 9:41 Verenice R.N.) (9:52 Verenice R.N.) LORazepam IV 1 mg (NOW) (:03/21/2017 Danny ECHEVERRIA) (9:41 Verenice R.N.) LORazepam IV 0.5 mg (NOW) (09:43 03/21/2017 Danny ECHEVERRIA) (9:52 Verenice Garcia) LORazepam IV 0.5 mg (NOW) (10:06 03/21/2017 Danny ECHEVERRIA) (10:25 Verenice Garcia) ORDER SHEET NOTES: [Electronically signed by Corie Eaton R.N. (14:29 03/21/2017)] [Electronically signed by Flavio Conteh MD (13:29 03/22/2017)] [Electronically locked/signed by Corie Eaton R.N. (14:29 03/21/2017)]
--- NOTE | 2017-03-21 13:38 | ED CLINICAL REPORT ---
Clinical Report - Physicians/Mid Levels [facility] [address] [place] [address] 03/21/2017 9:20 Patient: NGUYEN BONILLA Time Seen: 09:21; upon arrival. HISTORY OF PRESENT ILLNESS Chief Complaint: CHANGED MENTAL STATUS. Bizarre Behavior outside a smoke shop. He was scaring customers. Initially he was seen by police and then his care was transferred to EMS. (Character: Bizarre behavior). This started Unknown onset and is still present. (unknown onset). History of recent drug use suspected: methamphetamines. Dextro stick was not low prior to arrival. No medication given prior to arrival. No weakness, numbness or recent fall. No difficulty walking. Usually is alert and oriented X3 and usually has normal mobility. Similar symptoms previously: Several times. Recent medical care: The patient was seen recently at this facility in the emergency department. ( Suspected substance abuse resulting in AMS He tells me that he was recently incarcerated and started an intake at [facility] REVIEW OF SYSTEMS Pt cannot give any ROS due to AMS. PAST HISTORY ( PAST HISTORY Problems: Substance Abuse. Hypertension. Bursitis Abscesses Cellulitis SURGERY: Abscess I&D). SOCIAL HISTORY History of drug use: methamphetamines. ADDITIONAL NOTES The nursing notes have been reviewed. PHYSICAL EXAM Vital Signs: 03/21/2017 13:45 BP: 134/86. HR: 111. RR: 18. O2 saturation: 100%. Temp: 98.1 F. Pain level now: 0. 03/21/2017 13:45 Pain level now: 0. 03/21/2017 12:01 Temp: 98.4 F. 03/21/2017 11:51 Temp: 98.4 F. 03/21/2017 11:34 BP: 118/84. HR: 112. RR: 26. O2 saturation: 99%. 03/21/2017 09:59 BP: 136/60. HR: 137. RR: 20. 03/21/2017 09:40 HR: 132. RR: 33. 03/21/2017 09:21 BP: 134/94. HR: 142. RR: 22. O2 saturation: 100%. Temp: 99.6 F. Appearance: (Avidly picking at his face). Head: Head atraumatic. ENT: Airway intact. Moist mucous membranes. (except for pick jacques). CVS: Tachycardia. Heart sounds normal. Respiratory: No respiratory distress. Breath sounds normal. Abdomen: Soft and nontender. Skin: (Pick jacques chiefly on face). Extremities: Extremities exhibit normal ROM. No lower extremity edema. Neuro: The patient is disoriented. Alertness is decreased. Cranial nerves normal (as tested). No motor deficit. No sensory deficit. LABS, X-RAYS, AND EKG Laboratory Tests: UA-Culture if indicated: (KEITH: 03/21/2017 11:10) ( MsgRcvd 03/21/2017 11:36) Final results Test Result Flag Units (Reference) URINE COLOR YELLOW URINE APPEARANCE TURBID URINE GLUCOSE NEGATIVE (NEGATIVE) URINE BILIRUBIN NEGATIVE (NEGATIVE) URINE KETONE 2+ (NEGATIVE) URINE SPECIFIC GRAVITY 1.015 (1.010-1.030) URINE PH 8.0 (5.0-8.0) URINE PROTEIN 1+ (NEGATIVE) URINE UROBILINOGEN 2.0 EU/dL (0.2-1.0) The urobilinogen reagent area may react with interferingsubstances known to react with Pola's reagent such asp-aminosalicylic acid and sulfonamides. Atypical colorreactions may be obtained in the presence of highconcentrations of p-aminobenzoic acid. The absence ofurobilinogen cannot be determined with this test. URINE NITRITE NEGATIVE (NEGATIVE) URINE BLOOD NEGATIVE (NEGATIVE) URINE LEUK ESTERASE NEGATIVE (NEGATIVE) URINE RBC RARE rbc/hpf (0-1) URINE WBC RARE wbc/hpf (0-1) URINE EPITHELIAL CELLS RARE EPI/hpf (0-5) URINE BACTERIA NONE SEEN (NONE SEEN) URINE COMMENT CULT NOT INDICATED 4+ AMORPHOUS CRYSTALS1+ MUCOUSURINE CULTURES ARE SET-UP BASED ON THE FOLLOWING CRITERIA:POSITIVE NITRITEPOSITIVE LEUKOCYTE ESTERASEGREATER THAN 10 WHITE BLOOD CELLSMODERATE (2+) OR GREATER BACTERIA CBC w Diff: (KEITH: 03/21/2017 09:30) ( MsgRcvd 03/21/2017 09:58) Final results Test Result Flag Units (Reference) WHITE BLOOD COUNT 8.2 K/uL (4.5-11.5) RED BLOOD COUNT 4.87 M/uL (4.50-5.90) HEMOGLOBIN 13.8 gm/dL (13.5-17.5) HEMATOCRIT 41.9 % (41.0-53.0) MEAN CELL VOLUME 86 fL (80-100) MEAN CORPUSCULAR HGB 28 pg (26-34) MEAN CORPUSCULAR HGB CONC 33 g/dL (31-37) RED CELL DISTRIBUTION WIDTH 14.0 % (11.6-14.8) PLATELET COUNT 319 K/uL (150-400) NEUTROPHIL % 72.6 % (50-75) LYMPH % 19.2 L % (25-40) MONO % 7.0 % (3-14) EOSINOPHIL % 0.8 % (0-4) BASOPHIL % 0.4 % (0-2) Salicylate Level: (KEITH: 03/21/2017 09:30) ( [facility] 03/21/2017 10:51) Final results Test Result Flag Units (Reference) SALICYLATE <2.8 L mg/dL (2.8-20) Urine Drug Screen: (KEITH: 03/21/2017 11:10) ( [facility] 03/21/2017 11:40) Final results Test Result Flag Units (Reference) AMPHETAMINE/METHAMPHETAMINE POSITIVE H (NEGATIVE) BARBITURATE NEGATIVE (NEGATIVE) BENZODIAZEPINE NEGATIVE (NEGATIVE) CANNABINOID NEGATIVE (NEGATIVE) COCAINE NEGATIVE (NEGATIVE) ECSTASY POSITIVE H (NEGATIVE) METHADONE NEGATIVE (NEGATIVE) OPIATE POSITIVE H (NEGATIVE) The urine drug screen is a qualitative screening test fordrug overdose and abuse. All screen results should beconsidered as presumptive.Drugs screened for are as follows:BenzodiazepinesCocaineAmphetamines/MetamphetaminesTHC (Tetrahydrocannabinol)OpiatesBarbituratesEcstasyMethadonePositive results are unconfirmed. For confirmation, notifythe lab for the specimen to be sent to the reference lab.All confirmations must be performed by a differentmethodology.The ingestion of natural herbal and plant productscontaining Ephedra/Ephedra metabolites can produce in urineone or more substances capable of cross reacting withamphetamine/methamphetamine immunoassays. These testsprovide a preliminary result only. A more specificalternative chemical method must be used to obtain aconfirmed analytical result. CHEM 13 PANEL: (KEITH: 03/21/2017 09:30) ( MsgRcvd 03/21/2017 11:10) Final results Test Result Flag Units (Reference) GLUCOSE 129 H mg/dL (70-110) BUN 9 mg/dL (7-18) CREATININE 0.9 mg/dL (0.6-1.3) Estimated GFR >60 mL/min Estimated GFR- >60 mL/min Note: Persistent reduction over 3 months in eGFR<60 mL/min/1.73 m2 defines CKD. Patients with eGFR values>=60 mL/min/1.73 m2 may also have CKD if evidence ofpersistent proteinuria. Additional information may be foundat www.kidney.org. SODIUM 147 H mmol/L (136-145) POTASSIUM 3.3 L mmol/L (3.5-5.1) CHLORIDE 108 H mmol/L (98-107) CARBON DIOXIDE 27 mmol/L (21-32) CALCIUM 9.2 mg/dL (8.5-10.1) TOTAL PROTEIN 8.3 H g/dL (6.4-8.2) ALBUMIN 3.6 g/dL (3.3-5.0) BILIRUBIN, TOTAL 0.3 mg/dL (0.0-1.0) ALKALINE PHOSPHATASE 78 U/L (46-116) AST (SGOT) 33 U/L (15-37) ALT (SGPT) 50 U/L (12-78) CPK 405 H U/L (24-260) MAGNESIUM 1.8 mg/dL (1.8-2.4) CK-MB 2.2 ng/mL (0.5-3.2) %CKMB 0.5 % (0.0-4.0) TROPONIN I <0.05 L ng/mL (0.00-1.5) TROPONIN REFERENCE RANGE:<0.1 NEGATIVE0.1-1.5 INDETERMINANT>1.5 POSITIVE ACETAMINOPHEN < 2.0 L ug/mL (10-30) . PROGRESS AND PROCEDURES Course of Care: Initially barely speaking, decreased alertness, avid picking. 09:45 03/21/17. Course most CW methamphetamine abuse. Increased HR noted. Qsofa score 1- AMS 10:15 03/21/17. Significantly better following lorazepam 1 + 0.5 + 0.5 mg 11:30 03/21/17. Much better. Recheck oral temp is 98.0 12:02 03/21/17. UA positive for Meth. 12:04 03/21/17. Waiting until sober or until he can find a family member. 13:36 03/21/17. Awake talking and appropriate. He is still tachycardic due to residual effects of meth. He ate a good meal. Small elevation of CK noted. Minor electrolyte abnormalities noted. Not clinically significant. Disposition: Discharged. Condition: stable. CLINICAL IMPRESSION Acute mental status change. Substance abuse problems: abuse of methamphetamine. INSTRUCTIONS (YOU NEED TO STOP METH OR YOU WILL CONSIDER [facility] FOR DRUG TREATMENT). Understanding of the discharge instructions verbalized. Follow-up with: [facility], , , [address], [facility], [id number] (Electronically signed by Flavio Conteh MD 03/22/2017 13:29)
--- NOTE | 2017-03-21 13:38 | ED CLINICAL REPORT ---
Clinical Report - Physicians/Mid Levels [facility] [address] [place] [address] 03/21/2017 9:20 Patient: NGUYEN BONILLA Time Seen: 09:21; upon arrival. HISTORY OF PRESENT ILLNESS Chief Complaint: CHANGED MENTAL STATUS. Bizarre Behavior outside a smoke shop. He was scaring customers. Initially he was seen by police and then his care was transferred to EMS. (Character: Bizarre behavior). This started Unknown onset and is still present. (unknown onset). History of recent drug use suspected: methamphetamines. Dextro stick was not low prior to arrival. No medication given prior to arrival. No weakness, numbness or recent fall. No difficulty walking. Usually is alert and oriented X3 and usually has normal mobility. Similar symptoms previously: Several times. Recent medical care: The patient was seen recently at this facility in the emergency department. ( Suspected substance abuse resulting in AMS He tells me that he was recently incarcerated and started an intake at [facility].). REVIEW OF SYSTEMS Pt cannot give any ROS due to AMS. PAST HISTORY ( PAST HISTORY Problems: Substance Abuse. Hypertension. Bursitis Abscesses Cellulitis SURGERY: Abscess I&D). SOCIAL HISTORY History of drug use: methamphetamines. ADDITIONAL NOTES The nursing notes have been reviewed. PHYSICAL EXAM Vital Signs: 03/21/2017 13:45 BP: 134/86. HR: 111. RR: 18. O2 saturation: 100%. Temp: 98.1 F. Pain level now: 0. 03/21/2017 13:45 Pain level now: 0. 03/21/2017 12:01 Temp: 98.4 F. 03/21/2017 11:51 Temp: 98.4 F. 03/21/2017 11:34 BP: 118/84. HR: 112. RR: 26. O2 saturation: 99%. 03/21/2017 09:59 BP: 136/60. HR: 137. RR: 20. 03/21/2017 09:40 HR: 132. RR: 33. 03/21/2017 09:21 BP: 134/94. HR: 142. RR: 22. O2 saturation: 100%. Temp: 99.6 F. Appearance: (Avidly picking at his face). Head: Head atraumatic. ENT: Airway intact. Moist mucous membranes. (except for pick jacques). CVS: Tachycardia. Heart sounds normal. Respiratory: No respiratory distress. Breath sounds normal. Abdomen: Soft and nontender. Skin: (Pick jacques chiefly on face). Extremities: Extremities exhibit normal ROM. No lower extremity edema. Neuro: The patient is disoriented. Alertness is decreased. Cranial nerves normal (as tested). No motor deficit. No sensory deficit. LABS, X-RAYS, AND EKG Laboratory Tests: UA-Culture if indicated: (KEITH: 03/21/2017 11:10) ( MsgRcvd 03/21/2017 11:36) Final results Test Result Flag Units (Reference) URINE COLOR YELLOW URINE APPEARANCE TURBID URINE GLUCOSE NEGATIVE (NEGATIVE) URINE BILIRUBIN NEGATIVE (NEGATIVE) URINE KETONE 2+ (NEGATIVE) URINE SPECIFIC GRAVITY 1.015 (1.010-1.030) URINE PH 8.0 (5.0-8.0) URINE PROTEIN 1+ (NEGATIVE) URINE UROBILINOGEN 2.0 EU/dL (0.2-1.0) The urobilinogen reagent area may react with interferingsubstances known to react with Pola's reagent such asp-aminosalicylic acid and sulfonamides. Atypical colorreactions may be obtained in the presence of highconcentrations of p-aminobenzoic acid. The absence ofurobilinogen cannot be determined with this test. URINE NITRITE NEGATIVE (NEGATIVE) URINE BLOOD NEGATIVE (NEGATIVE) URINE LEUK ESTERASE NEGATIVE (NEGATIVE) URINE RBC RARE rbc/hpf (0-1) URINE WBC RARE wbc/hpf (0-1) URINE EPITHELIAL CELLS RARE EPI/hpf (0-5) URINE BACTERIA NONE SEEN (NONE SEEN) URINE COMMENT CULT NOT INDICATED 4+ AMORPHOUS CRYSTALS1+ MUCOUSURINE CULTURES ARE SET-UP BASED ON THE FOLLOWING CRITERIA:POSITIVE NITRITEPOSITIVE LEUKOCYTE ESTERASEGREATER THAN 10 WHITE BLOOD CELLSMODERATE (2+) OR GREATER BACTERIA CBC w Diff: (KEITH: 03/21/2017 09:30) ( MsgRcvd 03/21/2017 09:58) Final results Test Result Flag Units (Reference) WHITE BLOOD COUNT 8.2 K/uL (4.5-11.5) RED BLOOD COUNT 4.87 M/uL (4.50-5.90) HEMOGLOBIN 13.8 gm/dL (13.5-17.5) HEMATOCRIT 41.9 % (41.0-53.0) MEAN CELL VOLUME 86 fL (80-100) MEAN CORPUSCULAR HGB 28 pg (26-34) MEAN CORPUSCULAR HGB CONC 33 g/dL (31-37) RED CELL DISTRIBUTION WIDTH 14.0 % (11.6-14.8) PLATELET COUNT 319 K/uL (150-400) NEUTROPHIL % 72.6 % (50-75) LYMPH % 19.2 L % (25-40) MONO % 7.0 % (3-14) EOSINOPHIL % 0.8 % (0-4) BASOPHIL % 0.4 % (0-2) Salicylate Level: (KEITH: 03/21/2017 09:30) ( [facility] 03/21/2017 10:51) Final results Test Result Flag Units (Reference) SALICYLATE <2.8 L mg/dL (2.8-20) Urine Drug Screen: (KEITH: 03/21/2017 11:10) ( [facility] 03/21/2017 11:40) Final results Test Result Flag Units (Reference) AMPHETAMINE/METHAMPHETAMINE POSITIVE H (NEGATIVE) BARBITURATE NEGATIVE (NEGATIVE) BENZODIAZEPINE NEGATIVE (NEGATIVE) CANNABINOID NEGATIVE (NEGATIVE) COCAINE NEGATIVE (NEGATIVE) ECSTASY POSITIVE H (NEGATIVE) METHADONE NEGATIVE (NEGATIVE) OPIATE POSITIVE H (NEGATIVE) The urine drug screen is a qualitative screening test fordrug overdose and abuse. All screen results should beconsidered as presumptive.Drugs screened for are as follows:BenzodiazepinesCocaineAmphetamines/MetamphetaminesTHC (Tetrahydrocannabinol)OpiatesBarbituratesEcstasyMethadonePositive results are unconfirmed. For confirmation, notifythe lab for the specimen to be sent to the reference lab.All confirmations must be performed by a differentmethodology.The ingestion of natural herbal and plant productscontaining Ephedra/Ephedra metabolites can produce in urineone or more substances capable of cross reacting withamphetamine/methamphetamine immunoassays. These testsprovide a preliminary result only. A more specificalternative chemical method must be used to obtain aconfirmed analytical result. CHEM 13 PANEL: (KEITH: 03/21/2017 09:30) ( MsgRcvd 03/21/2017 11:10) Final results Test Result Flag Units (Reference) GLUCOSE 129 H mg/dL (70-110) BUN 9 mg/dL (7-18) CREATININE 0.9 mg/dL (0.6-1.3) Estimated GFR >60 mL/min Estimated GFR- >60 mL/min Note: Persistent reduction over 3 months in eGFR<60 mL/min/1.73 m2 defines CKD. Patients with eGFR values>=60 mL/min/1.73 m2 may also have CKD if evidence ofpersistent proteinuria. Additional information may be foundat www.kidney.org. SODIUM 147 H mmol/L (136-145) POTASSIUM 3.3 L mmol/L (3.5-5.1) CHLORIDE 108 H mmol/L (98-107) CARBON DIOXIDE 27 mmol/L (21-32) CALCIUM 9.2 mg/dL (8.5-10.1) TOTAL PROTEIN 8.3 H g/dL (6.4-8.2) ALBUMIN 3.6 g/dL (3.3-5.0) BILIRUBIN, TOTAL 0.3 mg/dL (0.0-1.0) ALKALINE PHOSPHATASE 78 U/L (46-116) AST (SGOT) 33 U/L (15-37) ALT (SGPT) 50 U/L (12-78) CPK 405 H U/L (24-260) MAGNESIUM 1.8 mg/dL (1.8-2.4) CK-MB 2.2 ng/mL (0.5-3.2) %CKMB 0.5 % (0.0-4.0) TROPONIN I <0.05 L ng/mL (0.00-1.5) TROPONIN REFERENCE RANGE:<0.1 NEGATIVE0.1-1.5 INDETERMINANT>1.5 POSITIVE ACETAMINOPHEN < 2.0 L ug/mL (10-30) . PROGRESS AND PROCEDURES Course of Care: Initially barely speaking, decreased alertness, avid picking. 09:45 03/21/17. Course most CW methamphetamine abuse. Increased HR noted. Qsofa score 1- AMS 10:15 03/21/17. Significantly better following lorazepam 1 + 0.5 + 0.5 mg 11:30 03/21/17. Much better. Recheck oral temp is 98.0 12:02 03/21/17. UA positive for Meth. 12:04 03/21/17. Waiting until sober or until he can find a family member. 13:36 03/21/17. Awake talking and appropriate. He is still tachycardic due to residual effects of meth. He ate a good meal. Small elevation of CK noted. Minor electrolyte abnormalities noted. Not clinically significant. Disposition: Discharged. Condition: stable. CLINICAL IMPRESSION Acute mental status change. Substance abuse problems: abuse of methamphetamine. INSTRUCTIONS (YOU NEED TO STOP METH OR YOU WILL CONSIDER [facility] FOR DRUG TREATMENT). Understanding of the discharge instructions verbalized. Follow-up with: [facility], , , [address], [facility], [address] (Electronically signed by Flavio Conteh MD 03/22/2017 13:29)
--- NOTE | 2017-03-22 13:29 | ED MED RECONCILIATION SUMMARY ---
Patient: NGUYEN BONILLA Medication Reconciliation Report [facility] VisitID: [id number] [address] [place] [address] 26y, M Registration Date/Time: 03/21/2017 Weight: 81.6 kg Height/Length: 70 in. BMI: 25.8 ALLERGIES: Vancomycin The patient's Home Medications are listed below: THE FOLLOWING MEDICATIONS NEED TO BE RECONCILED: Antidepressant CloNIDine HCl Oral Percocet Oral PriLOSEC Oral The source(s) of the original Home Medication information: Not obtained. The following Medications were given to the patient in the Emergency Department: Lorazepam [IVP] IVP 1 mg, administered: 03/21/2017 9:41:00 AM Lorazepam [IVP] IVP 0.5 mg, administered: 03/21/2017 9:52:00 AM IV NS IV Fluids bolus 0, then 1000 mL/hr, administered: 03/21/2017 9:52:00 AM Lorazepam [IVP] IVP 0.5 mg, administered: 03/21/2017 10:10:00 AM The following Medications were prescribed to the patient: None.
--- NOTE | 2017-03-22 13:29 | ED MAR SUMMARY ---
..... Medication Administration Record [facility] [address] [place] [address] Patient: NGUYEN BONILLA Visit ID: [id number] 26y, M Weight: 81.6 kg Height/Length: 70 in BMI: 25.8 ALLERGIES: Vancomycin Given 09:41 03/21/2017 Corie Eaton R.N. Medication Administered: LORAZEPAM [IVP] (LORAZEPAM), Dose: 1 mg IVP over 1 minute(s), Site: #1 left AC. Medication Ordered: LORazepam IV 1 mg (NOW). Given 09:52 03/21/2017 Corie Eaton R.N. Medication Administered: LORAZEPAM [IVP] (LORAZEPAM), Dose: 0.5 mg IVP over 1 minute(s), Site: #1 left AC. Medication Ordered: LORazepam IV 0.5 mg (NOW). Start 09:52 03/21/2017 Corie Eaton R.N., Stop 10:42 03/21/2017 Corie Eaton R.N. Medication Administered: IV NS (SALINE), Dose: IV Fluids over 1 hour(s), Rate: 1000 mL/hr, Dispensed: 1000 mL bag, Site: #1 left AC. Medication Ordered: IV NS : initial bolus none -, then 500 mL/hr for 3h (NOW); Urgent. Given 10:10 03/21/2017 Corie Eaton R.N. Medication Administered: LORAZEPAM [IVP] (LORAZEPAM), Dose: 0.5 mg IVP over 1 minute(s), Site: #1 left AC. Medication Ordered: LORazepam IV 0.5 mg (NOW).
--- NOTE | 2017-03-22 13:29 | ED MAR SUMMARY ---
..... Medication Administration Record [facility] [address] [place] [address] Patient: NGUYEN BONLILA Visit ID: [id number] 26y, M Weight: 81.6 kg Height/Length: 70 in BMI: 25.8 ALLERGIES: Vancomycin Given 09:41 03/21/2017 Corie Eaton R.N. Medication Administered: LORAZEPAM [IVP] (LORAZEPAM), Dose: 1 mg IVP over 1 minute(s), Site: #1 left AC. Medication Ordered: LORazepam IV 1 mg (NOW). Given 09:52 03/21/2017 Corie Eaton R.N. Medication Administered: LORAZEPAM [IVP] (LORAZEPAM), Dose: 0.5 mg IVP over 1 minute(s), Site: #1 left AC. Medication Ordered: LORazepam IV 0.5 mg (NOW). Start 09:52 03/21/2017 Corie Eaton R.N., Stop 10:42 03/21/2017 Corie Eaton R.N. Medication Administered: IV NS (SALINE), Dose: IV Fluids over 1 hour(s), Rate: 1000 mL/hr, Dispensed: 1000 mL bag, Site: #1 left AC. Medication Ordered: IV NS : initial bolus none -, then 500 mL/hr for 3h (NOW); Urgent. Given 10:10 03/21/2017 Corie Eaton R.N. Medication Administered: LORAZEPAM [IVP] (LORAZEPAM), Dose: 0.5 mg IVP over 1 minute(s), Site: #1 left AC. Medication Ordered: LORazepam IV 0.5 mg (NOW).
--- NOTE | 2017-03-22 13:29 | ED MED RECONCILIATION SUMMARY ---
Patient: NGUYEN BONILLA Medication Reconciliation Report [facility] VisitID: [id number] [address] [place] [address] 26y, M Registration Date/Time: 03/21/2017 Weight: 81.6 kg Height/Length: 70 in. BMI: 25.8 ALLERGIES: Vancomycin The patient's Home Medications are listed below: THE FOLLOWING MEDICATIONS NEED TO BE RECONCILED: Antidepressant CloNIDine HCl Oral Percocet Oral PriLOSEC Oral The source(s) of the original Home Medication information: Not obtained. The following Medications were given to the patient in the Emergency Department: Lorazepam [IVP] IVP 1 mg, administered: 03/21/2017 9:41:00 AM Lorazepam [IVP] IVP 0.5 mg, administered: 03/21/2017 9:52:00 AM IV NS IV Fluids bolus 0, then 1000 mL/hr, administered: 03/21/2017 9:52:00 AM Lorazepam [IVP] IVP 0.5 mg, administered: 03/21/2017 10:10:00 AM The following Medications were prescribed to the patient: None.
--- NOTE | 2017-03-22 13:29 | ED DISCHARGE INSTRUCTIONS ---
Patient: NGUYEN BONILLA General Instructions [facility] VisitID: [id number] [address] [place] [address] 26y, M Registration Date/Time: 03/21/2017 Acute mental status change. Substance abuse problems: abuse of methamphetamine. INSTRUCTIONS (YOU NEED TO STOP METH OR YOU WILL CONSIDER [facility] FOR DRUG TREATMENT). Understanding of the discharge instructions verbalized. Follow-up with: [facility], , , [address], , [place], [id number] (Electronically signed by Flavio Conteh MD 03/22/2017 13:29)
--- NOTE | 2017-03-22 13:29 | ED DISCHARGE INSTRUCTIONS ---
Patient: NGUYEN BONILLA General Instructions [facility] VisitID: [id number] [address] [place] [address] 26y, M Registration Date/Time: 03/21/2017 Acute mental status change. Substance abuse problems: abuse of methamphetamine. INSTRUCTIONS (YOU NEED TO STOP METH OR YOU WILL CONSIDER [facility] FOR DRUG TREATMENT). Understanding of the discharge instructions verbalized. Follow-up with: [facility], , , [address], , [place], [address] (Electronically signed by Flavio Conteh MD 03/22/2017 13:29)
== END 2017-03-21 13:45 | disposition home or self-care (01) ==
LOC: ED SRH 09:18
DX: R41.82 Altered mental status, unspecified (principal); F19.10 Other psychoactive substance abuse, uncomplicated; I10 Essential (primary) hypertension
CPT/HCPCS: 90004; 90100; 90616; 90617; 92610; 92720; 92760; 92761; 92762; 92763; 92764; 92765; 92766; 92767; 92780; 95059; 97000

== ENCOUNTER 2017-04-26 22:51 | Emergency (ER) | payer OTHER ==
--- NOTE | 2017-04-27 00:21 | ED CLINICAL REPORT ---
Clinical Report - Physicians/Mid Levels [facility] [address] [place] [address] 04/26/2017 22:52 Patient: NGUYEN BONILLA Time Seen: 23:26; initial patient contact. INSTRUCTIONS (Pt left AMA prior to me seeing him). (Electronically signed by Oneil Bazan Dr. 04/27/2017 9:29)
--- NOTE | 2017-04-27 00:21 | ED NURSING NOTES ---
Clinical Report - Nurses [place] [address] [place] [address] 04/26/2017 22:52 Patient: NGUYEN BONILLA TRIAGE Triage time 23:11. Acuity: LEVEL 3. Chief Complaint: DRUG OVERDOSE. 23:23 04/26/17. Alert. No acute distress. SEPSIS SCREEN: Sepsis Screen. Negative (no infection suspected/documented). YAKELIN COMA SCORE: Yakelin Coma Scale: 15- eyes open spontaneously (4); best verbal response- oriented x 4 (5); best motor response- obeys commands (6). --23:23 Radha Carson R.N. 23:11 04/26/17. BP: 121/77 taken on the left arm, while sitting. HR: 90. RR: 12. O2 saturation: 95%. Temp: 97.5 F. Pain level now: 0/10. --23:23 Radha Carson R.N. Weight: 83.9 kg stated. Height/Length: 72 inches Per Patient. BMI: 25.1. --23:15 Radha Carson R.N. Medications None. --23:13 Radha Carson R.N. Allergies Vancomycin. --23:13 Radha Carson R.N. History Arrived by EMS. Historian: patient. This occurred today. The patient had loss of consciousness. 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 PAST MEDICAL HX: Immunizations: up-to-date. SOCIAL HX: Heavy tobacco smoker- 1 pack per day. History of heavy drug use: heroin, methamphetamines. Recently used drugs just prior to arrival. Under influence in ED. No alcohol use. FALL RISK ASSESSMENT: Fall risk assessment completed. No fall risk identified. NUTRITIONAL RISK ASSESSMENT: The nutritional risk assessment revealed no deficiencies. FUNCTIONAL ASSESSMENT: Functional assessment: no impairments noted. LEARNING NEEDS ASSESSMENT: The learning needs assessment revealed no barriers. SKIN INTEGRITY ASSESSMENT: Skin integrity risk assessment completed. No skin integrity risk identified. --23:23 Radha Carson R.N. PROBLEMS: Changed Mental Status. Depression. Unable to obtain. Substance Abuse. Knee Injury. Abscess. Cellulitis. Lifestyle / Substance Problems. Hypertension. Bursitis. --23:13 Radha Carson R.N. ADDITIONAL SURGERIES: ARM SURGERY. Back Surgery. LEG SURGERY. Unknown. --23:13 Radha Carson R.N. Interventions ID band on patient. To treatment room. --23:23 Radha Carson R.N. PHYSICAL ASSESSMENT 23:55 04/26/17. To room via stretcher. GENERAL / NEURO / PSYCH: Alert. Oriented X 4. Appears in no acute distress. Affect appears flat. Patient appears calm and cooperative. Patient's speech is slurred. RESPIRATORY: Respirations not labored. Breath sounds within normal limits. CVS: Capillary refill less than 2 seconds. GI / : Abdomen soft and nontender. SKIN: Skin is warm and dry. Skin color is within normal limits. ( patient has generalized scabbing). --23:55 Radha Carson R.N. NURSING PROGRESS NOTES 23:15. Monitoring of patient in place. Patient gowned. Head of bed elevated. Two patient identifiers checked. Call light placed in reach. Side rails up x 2. Bed placed in lowest position. Brakes of bed on. --23:56 Radha Carson R.N. DISPOSITION / DISCHARGE 23:58 04/26/17. The patient left the Emergency Department without being seen by a physician; patient was unaccompanied. The patient appears to be alert and oriented x4. He notified the ED staff prior to leaving the department and stated is leaving the ED due to personal reasons. Notified the ED physician of patient departure. Prior to leaving the ED, he was advised to stay for completion of treatment and return if needed. He was informed of the risks of leaving and verbalized understanding of these risks. Patient signed form prior to leaving. He left the Emergency Department ambulatory and via private vehicle. ( patient given phone to call ride. Patient given information on substance abuse treatment, given juice and snack.). --23:58 Radha Carson R.N. 23:11 04/26/17. BP: 121/77 taken on the left arm, while sitting. HR: 90. RR: 12. O2 saturation: 95%. Temp: 97.5 F. Pain level now: 0/10. --23:58 Radha Carson R.N. Locked/Released at 04/27/2017 2:50 by Radha Carson R.N.
--- NOTE | 2017-04-27 00:21 | ED NURSING NOTES ---
Clinical Report - Nurses [address] [place] [address] [place] [address] 04/26/2017 22:52 Patient: NGUYEN BONILLA TRIAGE Triage time 23:11. Acuity: LEVEL 3. Chief Complaint: DRUG OVERDOSE. 23:23 04/26/17. Alert. No acute distress. SEPSIS SCREEN: Sepsis Screen. Negative (no infection suspected/documented). YAKELIN COMA SCORE: Yakelin Coma Scale: 15- eyes open spontaneously (4); best verbal response- oriented x 4 (5); best motor response- obeys commands (6). --23:23 Radha Carson R.N. 23:11 04/26/17. BP: 121/77 taken on the left arm, while sitting. HR: 90. RR: 12. O2 saturation: 95%. Temp: 97.5 F. Pain level now: 0/10. --23:23 Radha Carson R.N. Weight: 83.9 kg stated. Height/Length: 72 inches Per Patient. BMI: 25.1. --23:15 Radha Carson R.N. Medications None. --23:13 Radha Carson R.N. Allergies Vancomycin. --23:13 Radha Carson R.N. History Arrived by EMS. Historian: patient. This occurred today. The patient had loss of consciousness. 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 PAST MEDICAL HX: Immunizations: up-to-date. SOCIAL HX: Heavy tobacco smoker- 1 pack per day. History of heavy drug use: heroin, methamphetamines. Recently used drugs just prior to arrival. Under influence in ED. No alcohol use. FALL RISK ASSESSMENT: Fall risk assessment completed. No fall risk identified. NUTRITIONAL RISK ASSESSMENT: The nutritional risk assessment revealed no deficiencies. FUNCTIONAL ASSESSMENT: Functional assessment: no impairments noted. LEARNING NEEDS ASSESSMENT: The learning needs assessment revealed no barriers. SKIN INTEGRITY ASSESSMENT: Skin integrity risk assessment completed. No skin integrity risk identified. --23:23 Radha Carson R.N. PROBLEMS: Changed Mental Status. Depression. Unable to obtain. Substance Abuse. Knee Injury. Abscess. Cellulitis. Lifestyle / Substance Problems. Hypertension. Bursitis. --23:13 Radha Carson R.N. ADDITIONAL SURGERIES: ARM SURGERY. Back Surgery. LEG SURGERY. Unknown. --23:13 Radha Carson R.N. Interventions ID band on patient. To treatment room. --23:23 Radha Carson R.N. PHYSICAL ASSESSMENT 23:55 04/26/17. To room via stretcher. GENERAL / NEURO / PSYCH: Alert. Oriented X 4. Appears in no acute distress. Affect appears flat. Patient appears calm and cooperative. Patient's speech is slurred. RESPIRATORY: Respirations not labored. Breath sounds within normal limits. CVS: Capillary refill less than 2 seconds. GI / : Abdomen soft and nontender. SKIN: Skin is warm and dry. Skin color is within normal limits. ( patient has generalized scabbing). --23:55 Radha Carson R.N. NURSING PROGRESS NOTES 23:15. Monitoring of patient in place. Patient gowned. Head of bed elevated. Two patient identifiers checked. Call light placed in reach. Side rails up x 2. Bed placed in lowest position. Brakes of bed on. --23:56 Radha Carson R.N. DISPOSITION / DISCHARGE 23:58 04/26/17. The patient left the Emergency Department without being seen by a physician; patient was unaccompanied. The patient appears to be alert and oriented x4. He notified the ED staff prior to leaving the department and stated is leaving the ED due to personal reasons. Notified the ED physician of patient departure. Prior to leaving the ED, he was advised to stay for completion of treatment and return if needed. He was informed of the risks of leaving and verbalized understanding of these risks. Patient signed form prior to leaving. He left the Emergency Department ambulatory and via private vehicle. ( patient given phone to call ride. Patient given information on substance abuse treatment, given juice and snack.). --23:58 Radha Carson R.N. 23:11 04/26/17. BP: 121/77 taken on the left arm, while sitting. HR: 90. RR: 12. O2 saturation: 95%. Temp: 97.5 F. Pain level now: 0/10. --23:58 Radha Carson R.N. Locked/Released at 04/27/2017 2:50 by Radha Carson R.N.
--- NOTE | 2017-04-27 00:21 | ED CLINICAL REPORT ---
Clinical Report - Physicians/Mid Levels [facility] [address] [place] [address] 04/26/2017 22:52 Patient: NGUYEN BONILLA Time Seen: 23:26; initial patient contact. INSTRUCTIONS (Pt left AMA prior to me seeing him). (Electronically signed by Oneil Bazan Dr. 04/27/2017 9:29)
--- NOTE | 2017-04-27 09:29 | ED MAR SUMMARY ---
..... Medication Administration Record [facility] [address] [place], [place] [id number] Patient: NGUYEN BONILLA Visit ID: [id number] 26y, M Weight: 83.9 kg Height/Length: 72 in BMI: 25.1 ALLERGIES: Vancomycin
--- NOTE | 2017-04-27 09:29 | ED MED RECONCILIATION SUMMARY ---
Patient: NGUEYN BONILLA Medication Reconciliation Report [facility] VisitID: [id number] [address] [place] [address] 26y, M Registration Date/Time: 04/26/2017 Weight: 83.9 kg Height/Length: 72 in. BMI: 25.1 ALLERGIES: Vancomycin The patient's Home Medications are listed below: NONE. The source(s) of the original Home Medication information: Not obtained. The following Medications were given to the patient in the Emergency Department: None. The following Medications were prescribed to the patient: None.
--- NOTE | 2017-04-27 09:29 | ED DISCHARGE INSTRUCTIONS ---
Patient: NGUYEN BONILLA General Instructions [facility] VisitID: [id number] [address] [place] [address] 26y, M Registration Date/Time: 04/26/2017 INSTRUCTIONS (Pt left AMA prior to me seeing him). (Electronically signed by Oneil Bazan Dr. 04/27/2017 9:29)
--- NOTE | 2017-04-27 09:29 | ED DISCHARGE INSTRUCTIONS ---
Patient: NGUYEN BONILLA General Instructions [facility] VisitID: [id number] [address] [place] [address] 26y, M Registration Date/Time: 04/26/2017 INSTRUCTIONS (Pt left AMA prior to me seeing him). (Electronically signed by Oneil Bazan Dr. 04/27/2017 9:29)
--- NOTE | 2017-04-27 09:29 | ED MED RECONCILIATION SUMMARY ---
Patient: NGUYEN BONILLA Medication Reconciliation Report [facility] VisitID: [id number] [address] [place] [address] 26y, M Registration Date/Time: 04/26/2017 Weight: 83.9 kg Height/Length: 72 in. BMI: 25.1 ALLERGIES: Vancomycin The patient's Home Medications are listed below: NONE. The source(s) of the original Home Medication information: Not obtained. The following Medications were given to the patient in the Emergency Department: None. The following Medications were prescribed to the patient: None.
--- NOTE | 2017-04-27 09:29 | ED MAR SUMMARY ---
..... Medication Administration Record [facility] [address] [place], [place] [id number] Patient: NGUYEN BONILLA Visit ID: [id number] 26y, M Weight: 83.9 kg Height/Length: 72 in BMI: 25.1 ALLERGIES: Vancomycin
== END 2017-04-26 23:59 | disposition left against medical advice (07) ==
LOC: ED SRH 22:51
DX: Z53.21 Procedure and treatment not carried out due to patient leaving prior to being seen by health care provider (principal)